=== PATIENT | female | born 1955 | race American Indian/Alaskan Native ===

== ENCOUNTER 2019-07-01 07:32 | Emergency (ER) | payer OTHER ==
[2019-07-01 08:00] LABS: Hematocrit 36.9 % (30.3-42.9); Hemoglobin 12.1 gm/dl (10.1-14.3); Mean Corpuscular HGB Conc 33 % (30-34); Mean Corpuscular Volume 90 fl (79-97); Platelet Count 267 K/mm3 (140-440); Red Cell Distribution Width 13.1 % (13.2-15.2)
[2019-07-01 08:12] LABS: Alanine Aminotransferase 48 units/L (7-56); Albumin 4.2 g/dL (3.9-5); BUN/Creatinine Ratio 25; Blood Urea Nitrogen 15 mg/dL (7-17); Calcium 8.9 mg/dL (8.4-10.2); Hemolysis Index 0
[2019-07-01 08:26] LABS: Basophils # (Auto) 0.1 K/mm3 (0.0-0.1); Basophils % (Auto) 1.2 % (0.0-1.8); Eosinophils # (Auto) 0.2 K/mm3 (0.0-0.4); Eosinophils % (Auto) 2.8 % (0.0-4.3); Monocytes # (Auto) 1.1 K/mm3 (0.0-0.8)
[2019-07-01 08:50] VITALS: BP 169/84
[2019-07-01 09:08] LABS: Total Cells Counted 100
[2019-07-01 09:09] LABS: Platelet Estimate Consistent w Auto; RBC Morphology Normal
--- NOTE | 2019-07-01 09:45 | Emergency Department Report ---
ED Female HPI - General Chief complaint: Vaginal Bleeding Stated complaint: HEAVY BLEEDING Time Seen by Provider: 07/01/19 09:22 Source: patient Mode of arrival: Ambulatory Limitations: No Limitations - History of Present Illness Initial comments: 63-year-old female presents to ED with vaginal bleeding 2 days. Patient is postmenopausal, last menstrual period was at age of 48. Patient reports lower abdominal cramping. MD Complaint: vaginal bleeding -: days(s) (2) Severity: moderate Quality: cramping Consistency: constant Improves with: none Worsens with: none Are you Now?: No Associated Symptoms: denies other symptoms - Related Data Home Medications Medication Instructions Recorded Confirmed Last Taken Atenolol/Chlorthalidone [Tenoretic 1 each PO DAILY 08/24/14 08/24/14 08/23/14 50-25 mg] Previous Rx's Medication Instructions Recorded Last Taken Type traMADol [Ultram 50 MG tab] 50 mg PO Q6HR PRN #14 tablet 08/24/14 Unknown Rx HYDROcodone/APAP 5-325 [[place] 1 each PO Q6HR PRN #20 tablet 01/14/15 Unknown Rx 5/325] Allergies Allergy/AdvReac Type Severity Reaction Status Date / Time No Known Allergies Allergy Unverified 09/11/13 09:49 ED Review of Systems ROS: Stated complaint: HEAVY BLEEDING Other details as noted in HPI Comment: All other systems reviewed and negative Gastrointestinal: abdominal pain Genitourinary: abnormal menses ED Past Medical Hx - Past Medical History Previous Medical History?: Yes Hx Hypertension: Yes Hx Liver Disease: Yes (hep C) Additional medical history: chronic pain - Surgical History Past Surgical History?: Yes Additional Surgical History: TUBAL LIGATION. hemorrhoidectomy. nasal reconstruction - Social History Smoking Status: Current Every Day Smoker Substance Use Type: None - Medications Home Medications: Home Medications Medication Instructions Recorded Confirmed Last Taken Type Atenolol/Chlorthalidone [Tenoretic 1 each PO DAILY 08/24/14 08/24/14 08/23/14 History 50-25 mg] traMADol [Ultram 50 MG tab] 50 mg PO Q6HR PRN #14 tablet 08/24/14 Unknown Rx HYDROcodone/APAP 5-325 [[place] 1 each PO Q6HR PRN #20 tablet 01/14/15 Unknown Rx 5/325] ED Physical Exam - General Limitations: No Limitations General appearance: alert, in no apparent distress - Head Head exam: Present: atraumatic, normocephalic - Eye Eye exam: Present: normal appearance, EOMI - ENT ENT exam: Present: mucous membranes moist - Neck Neck exam: Present: normal inspection - Respiratory Respiratory exam: Present: normal lung sounds bilaterally. Absent: respiratory distress - Cardiovascular Cardiovascular Exam: Present: regular rate, normal rhythm - GI/Abdominal GI/Abdominal exam: Present: soft, tenderness (mild suprapubic tenderness). Absent: distended - Extremities Exam Extremities exam: Present: normal inspection - Neurological Exam Neurological exam: Present: alert, oriented X3 - Psychiatric Psychiatric exam: Present: normal affect, normal mood - Skin Skin exam: Present: warm, dry, intact, normal color ED Course Vital Signs 07/01/19 07/01/19 07:37 08:49 Temperature 98.2 F 98.0 F Pulse Rate 78 60 Respiratory 19 12 Rate Blood Pressure 172/78 Blood Pressure 169/84 [Right] O2 Sat by Pulse 95 100 Oximetry ED Medical Decision Making - Lab Data Result diagrams: 07/01/19 07:48 07/01/19 07:48 - Radiology Data Radiology results: report reviewed, image reviewed - Medical Decision Making 63-year-old female postmenopausal bleeding. Vitals are unremarkable other than mildly elevated blood pressure, however patient is not hypotensive or tachycardic. Hemoglobin is normal at 12.1. Ultrasound shows thickened endometrium. Patient advised to follow-up urgently with [facility] due to concern for possible malignancy with postmenopausal bleeding. Return precautions given. Will discharge at this time. - Differential Diagnosis anemia, malignancy, DUB Critical care attestation.: If time is entered above; I have spent that time in minutes in the direct care of this critically ill patient, excluding procedure time. ED Disposition Clinical Impression: Post-menopausal bleeding Disposition: DC-01 TO HOME OR SELFCARE Is pt being admited?: No Condition: Stable Instructions: Dysfunctional Uterine Bleeding (ED) Referrals: TAWNY ARMSTRONG MD [Primary Care Provider] - 3-5 Days SOCO KAISER MD [Staff Physician] - 3-5 Days [facility] [Provider Group] - 3-5 Days [facility] [Provider Group] - 3-5 Days Time of Disposition: 12:28
[2019-07-01 10:52] LABS: Bilirubin,Urine NEG (Negative); Blood,Urine LG (Negative); Color,Urine Yellow (Yellow); Protein,Urine <15 mg/dL mg/dL (Negative); Urobilinogen,Urine < 2.0 mg/dL (<2.0)
[2019-07-01 10:56] LABS: RBC,Urine > 182.0 /HPF (0.0-6.0)
--- NOTE | 2019-07-01 12:19 | Ultrasound Report ---
ULTRASOUND PELVIS INDICATION: Vaginal bleeding. Left lower quadrant and pelvic pain. TECHNIQUE: Transabdominal and Transvaginal. Duplex Color Doppler used: Yes. COMPARISON: None available FINDINGS: Uterus: Present. Size: 6.9 x 4.2 x 7.0 cm. Endometrial complex: Thickened measuring 0.8 cm. Fluid is noted along the endometrial canal without a distinct solid lesion. Mass lesions: None. Additional findings: None. Right Ovary: Size: 2.2 x 1.3 x 1.5 cm Blood flow: Normal. Cyst or mass: None. Left Ovary: Size: 2.2 x 1.2 x 1.3 cm Blood flow: Normal. Cyst or mass: None. Urinary Bladder: Normal. Free Fluid: None. Additional Findings: None. IMPRESSION: Endometrial thickening in the setting of vaginal bleeding in a postmenopausal patient is concerning f or malignancy until proven otherwise. 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 Signer Name: Justin Lord MD Signed: 07/01/2019 12:15 PM Workstation Name: [id number]
--- NOTE | 2019-07-01 12:19 | Ultrasound Report ---
ULTRASOUND PELVIS INDICATION: Vaginal bleeding. Left lower quadrant and pelvic pain. TECHNIQUE: Transabdominal and Transvaginal. Duplex Color Doppler used: Yes. COMPARISON: None available FINDINGS: Uterus: Present. Size: 6.9 x 4.2 x 7.0 cm. Endometrial complex: Thickened measuring 0.8 cm. Fluid is noted along the endometrial canal without a distinct solid lesion. Mass lesions: None. Additional findings: None. Right Ovary: Size: 2.2 x 1.3 x 1.5 cm Blood flow: Normal. Cyst or mass: None. Left Ovary: Size: 2.2 x 1.2 x 1.3 cm Blood flow: Normal. Cyst or mass: None. Urinary Bladder: Normal. Free Fluid: None. Additional Findings: None. IMPRESSION: Endometrial thickening in the setting of vaginal bleeding in a postmenopausal patient is concerning f or malignancy until proven otherwise. MILLER ROD MILL consultation is recommended. Signer Name: Justin Lord MD Signed: 07/01/2019 12:15 PM Workstation Name: [id number]
== END 2019-07-01 12:44 | disposition home or self-care (01) ==
LOC: ED 07:32
DX: N95.0 Postmenopausal bleeding (principal); I10 Essential (primary) hypertension; G89.29 Other chronic pain; F17.200 Nicotine dependence, unspecified, uncomplicated; Z98.51 Tubal ligation status; Z98.890 Other specified postprocedural states; Z86.19 Personal history of other infectious and parasitic diseases
CPT/HCPCS: 36415; 76830; 80053; 81001; 85007; 85025; 87086; 93975; 99284

== ENCOUNTER 2019-09-12 11:07 | Emergency (ER) | payer OTHER ==
[2019-09-12 11:42] LABS: Bacteria,Urine 1+ /HPF (Negative); Bilirubin,Urine NEG (Negative); Blood,Urine NEG (Negative); Color,Urine Yellow (Yellow); Mucus,Urine FEW /HPF; Protein,Urine <15 mg/dL mg/dL (Negative); Urobilinogen,Urine < 2.0 mg/dL (<2.0)
[2019-09-12] MEDS ORDERED: MORPHINE 4 MG/1 ML INJ IV ONE (12:01)
[2019-09-12] MEDS ORDERED: ONDANSETRON 4 MG/2 ML INJ IV ONE (12:01)
[2019-09-12] MEDS ORDERED: SODIUM CHLORIDE 0.9% 500 ML 500 ML IV ONE (12:01)
[2019-09-12 12:29] LABS: Hemoglobin 11.9 gm/dl (10.1-14.3); Mean Corpuscular HGB Conc 33 % (30-34); Mean Corpuscular Volume 88 fl (79-97); Platelet Count 278 K/mm3 (140-440); Red Blood Count 4.11 M/mm3 (3.65-5.03); Red Cell Distribution Width 14.8 % (13.2-15.2)
[2019-09-12 12:50] LABS: Alanine Aminotransferase 32 units/L (7-56); BUN/Creatinine Ratio 16; Blood Urea Nitrogen 8 mg/dL (7-17); Calcium 9.2 mg/dL (8.4-10.2); Hemolysis Index 3
--- NOTE | 2019-09-12 13:10 | Emergency Department Report ---
ED General Adult HPI - General Chief complaint: Weakness Stated complaint: LOWER BACK PAIN Time Seen by Provider: 09/12/19 11:30 Source: patient, RN notes reviewed, old records reviewed Mode of arrival: Ambulatory Limitations: No Limitations - History of Present Illness Initial comments: The patient is a 63-year-old female. 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 Saloni Hennessy [phone] Radiation oncology: Dr. Leonidas Siu The patient presents to the ER today with a complaint of nontraumatic suprapubic pain. The pain has been present since her surgery. She reports that she followed up with her gynecology oncologist after her surgery. Over the past 3 days, she's had worsening suprapubic pain that radiates to the right flank and right back. There is nausea vomiting times one. She has not vomited for 3 days. There is positive dysuria. She is not having diarrhea. There is no fever. There is no chest pain. There is no shortness of breath. There is no bright red blood per rectum. There is no focal extremity weakness and or numbness. -: Gradual Location: abdomen Radiation: back, flank Severity scale (0 -10): 7 Quality: aching Consistency: intermittent Improves with: none Worsens with: none - Related Data Home Medications Medication Instructions Recorded Confirmed Last Taken Atenolol/Chlorthalidone [Tenoretic 1 each PO DAILY 08/24/14 08/24/14 08/23/14 50-25 mg] Previous Rx's Medication Instructions Recorded Last Taken Type traMADoL [Ultram 50 MG tab] 50 mg PO Q6HR PRN #14 tablet 08/24/14 Unknown Rx HYDROcodone/APAP 5-325 [[place] 1 each PO Q6HR PRN #20 tablet 01/14/15 Unknown Rx 5/325] Acetaminophen [Non-Aspirin Extra 500 mg PO Q6HR PRN #30 tablet 09/12/19 Unknown Rx Strength] Vicenta Root [Vicenta] 250 mg PO QID PRN #30 capsule 09/12/19 Unknown Rx Ibuprofen [Motrin] 600 mg PO Q8H PRN #30 tablet 09/12/19 Unknown Rx Metoclopramide [Reglan] 10 mg PO QID PRN #30 tablet 09/12/19 Unknown Rx levoFLOXacin [Levaquin] 750 mg PO QDAY #6 tablet 09/12/19 Unknown Rx Allergies Allergy/AdvReac Type Severity Reaction Status Date / Time No Known Allergies Allergy Unverified 09/11/13 09:49 ED Review of Systems ROS: Stated complaint: LOWER BACK PAIN Other details as noted in HPI Constitutional: malaise. denies: fever Eyes: denies: eye discharge ENT: denies: congestion Cardiovascular: denies: syncope Gastrointestinal: abdominal pain, nausea, vomiting Genitourinary: dysuria Musculoskeletal: back pain Neurological: weakness Hematological/Lymphatic: denies: easy bleeding ED Past Medical Hx - Past Medical History Hx Hypertension: Yes Hx Liver Disease: Yes (hep C) Additional medical history: chronic pain - Surgical History Past Surgical History?: Yes Additional Surgical History: TUBAL LIGATION. hemorrhoidectomy. nasal reconstruction. hysterectomy 08/2019 - Social History Smoking Status: Never Smoker Substance Use Type: None - Medications Home Medications: Home Medications Medication Instructions Recorded Confirmed Last Taken Type Atenolol/Chlorthalidone [Tenoretic 1 each PO DAILY 08/24/14 08/24/14 08/23/14 History 50-25 mg] traMADoL [Ultram 50 MG tab] 50 mg PO Q6HR PRN #14 tablet 08/24/14 Unknown Rx HYDROcodone/APAP 5-325 [[place] 1 each PO Q6HR PRN #20 tablet 01/14/15 Unknown Rx 5/325] Acetaminophen [Non-Aspirin Extra 500 mg PO Q6HR PRN #30 tablet 09/12/19 Unknown Rx Strength] Vicenta Root [Vicenta] 250 mg PO QID PRN #30 capsule 09/12/19 Unknown Rx Ibuprofen [Motrin] 600 mg PO Q8H PRN #30 tablet 09/12/19 Unknown Rx Metoclopramide [Reglan] 10 mg PO QID PRN #30 tablet 09/12/19 Unknown Rx levoFLOXacin [Levaquin] 750 mg PO QDAY #6 tablet 09/12/19 Unknown Rx ED Physical Exam - General Limitations: No Limitations General appearance: alert, anxious - Head Head exam: Present: atraumatic, normocephalic - Eye Eye exam: Present: normal appearance, EOMI. Absent: nystagmus - ENT ENT exam: Present: normal exam, normal orophraynx, mucous membranes moist, normal external ear exam - Neck Neck exam: Present: normal inspection, full ROM. Absent: tenderness, meningismus - Respiratory Respiratory exam: Present: normal lung sounds bilaterally. Absent: respiratory distress - Cardiovascular Cardiovascular Exam: Present: regular rate, normal rhythm, normal heart sounds. Absent: bradycardia, tachycardia, irregular rhythm, systolic murmur, diastolic murmur, rubs, gallop - GI/Abdominal GI/Abdominal exam: Present: soft, distended, other (surgical sites have no redness, pus or streaking.). Absent: tenderness, guarding, rebound, rigid, pulsatile mass - Extremities Exam Extremities exam: Present: normal inspection, full ROM, other (2+ pulses noted in the bilateral upper and lower extremities. There is no palpable cord. negative Homans sign. Muscular compartments are soft. The pelvis is stable.). Absent: pedal edema, joint swelling, calf tenderness - Back Exam Back exam: Present: normal inspection, full ROM. Absent: tenderness, CVA tenderness (R), CVA tenderness (L), paraspinal tenderness, vertebral tenderness - Neurological Exam Neurological exam: Present: alert, normal gait, other (there is no facial droop. The tongue is midline. The extraocular movements are intact bilaterally. Speaking in full sentences. There is 5/5 strength bilateral upper and lower extremities.). Absent: motor sensory deficit - Psychiatric Psychiatric exam: Present: anxious - Skin Skin exam: Present: warm, dry, intact, normal color. Absent: rash ED Course Vital Signs 09/12/19 09/12/19 09/12/19 11:12 11:38 11:41 Temperature 97.8 F 97.9 F Pulse Rate 103 H 99 H Respiratory 18 Rate Blood Pressure 191/100 O2 Sat by Pulse 99 Oximetry 09/12/19 09/12/19 09/12/19 11:58 12:00 12:16 Temperature Pulse Rate 88 77 99 H Respiratory 13 11 L 10 L Rate Blood Pressure 171/92 167/90 O2 Sat by Pulse 100 99 100 Oximetry 09/12/19 09/12/19 12:30 12:46 Temperature Pulse Rate 74 71 Respiratory 12 9 L Rate Blood Pressure 145/77 145/77 O2 Sat by Pulse 100 100 Oximetry - Reevaluation(s) Reevaluation #1: 09/12/19 13:07 Differential diagnosis, including but not limited to: Urinary tract infection, pyelonephritis, postoperative abscess/seroma/collection, cancer pain Assessment and plan: 63-year-old female with 4-5 weeks of lower abdominal pain, worsening over the past couple days. She is afebrile with reassuring vital signs. She is not tender. Tachycardia has resolved and she does not have leukocytosis. Urinalysis is reviewed and appreciated. Given her recent surgical intervention, reported history of active cancer, we will treat her symptoms, obtain CT scan abdomen pelvis to exclude surgical condition. As a courtesy, attempted to contact her cullet crusher oncologist, Dr. Bossman Hennessy, but he was in the operating room and not available to discuss over the phone. However, his office staff informed me that the patient is having her post surgical care coordinated by Dr. Hennessy, and that the patient will be working wit h the aforementioned radiation oncologist. We will reassess after the patient's data points have resulted. Reevaluation #2: 09/12/19 14:14 [facility] aware 09/07/2019 2 09/04/2019 HYDROCODONE-ACETAMIN 7.5-325 20.0 3 CY SPA [id number] PUBLI (5492) 0 50.0 [place] Comm [place] 08/21/2019 2 08/21/2019 HYDROCODONE-ACETAMIN 5-325 MG 20.0 5 CY SPA [id number] PUBLI (5492) 0 20.0 [place] 08/10/2019 2 08/10/2019 HYDROCODONE-ACETAMIN 5-325 MG 20.0 5 CY SPA [id number] PUBLI (5492) 0 20.0 MME Comm Ins 07/31/2019 2 07/30/2019 OXYCODONE HCL 5 MG TABLET 20.0 5 CY SPA [id number] PUBLI (5492) 0 30.0 [place] 06/30/2019 2 06/29/2019 HYDROCODONE-ACETAMIN 5-325 MG 60.0 30 EF OGI [id number] PUBLI (5492) 0 10.0 [place] 01/08/2019 2 01/08/2019 HYDROCODONE-ACETAMIN 7.5-325 60.0 30 HY [place] [id number] PUBLI (5492) 0 15.0 [place] 12/07/2018 1 12/02/2018 HYDROCODONE-ACETAMIN 7.5-325 60.0 30 HY [place] [id number] PUBLI (5492) 0 15.0 [place] 11/08/2018 1 11/08/2018 HYDROCODONE-ACETAMIN 7.5-325 60.0 30 HY [place] [id number] PUBLI (5492) 0 15.0 [place] 10/11/2018 2 10/11/2018 HYDROCODONE-ACETAMIN 7.5-325 60.0 30 RANDALL [id number] PUBLI (5492) 0 15.0 [place] 09/12/2018 2 09/11/2018 HYDROCODONE-ACETAMIN 7.5-325 60.0 30 HY [place] [id number] PUBLI (5492) 0 15.0 [place] Reevaluation #3: 09/12/19 14:15 Patient reassessed. Patient feels improved. Patient will be started empirically on antibiotics, nonnarcotic pain medication and nausea medication. Prescription monitoring database is reviewed and appreciated. She will need to follow up with primary care and/or gynecology oncology. Return percussions reviewed. ED Medical Decision Making - Lab Data Result diagrams: 09/12/19 12:14 09/12/19 12:14 Vital Signs 09/12/19 09/12/19 09/12/19 11:12 11:38 11:41 Temperature 97.8 F 97.9 F Pulse Rate 103 H 99 H Respiratory 18 Rate Blood Pressure 191/100 O2 Sat by Pulse 99 Oximetry 09/12/19 09/12/19 09/12/19 11:58 12:00 12:16 Temperature Pulse Rate 88 77 99 H Respiratory 13 11 L 10 L Rate Blood Pressure 171/92 167/90 O2 Sat by Pulse 100 99 100 Oximetry 09/12/19 09/12/19 12:30 12:46 Temperature Pulse Rate 74 71 Respiratory 12 9 L Rate Blood Pressure 145/77 145/77 O2 Sat by Pulse 100 100 Oximetry Lab Results 09/12/19 09/12/19 09/12/19 Range/Units 12:14 12:14 Unknown WBC 6.0 (4.5-11.0) K/mm3 RBC 4.11 (3.65-5.03) M/mm3 Hgb 11.9 (10.1-14.3) gm/dl Hct 36.0 (30.3-42.9) % MCV 88 (79-97) fl MCH 29 (28-32) pg MCHC 33 (30-34) % RDW 14.8 (13.2-15.2) % Plt Count 278 (140-440) K/mm3 Sodium 138 (137-145) mmol/L Potassium 3.8 (3.6-5.0) mmol/L Chloride 105.1 (98-107) mmol/L Carbon Dioxide 22 (22-30) mmol/L Anion Gap 15 mmol/L BUN 8 (7-17) mg/dL Creatinine 0.5 L (0.7-1.2) mg/dL Estimated GFR > 60 ml/min BUN/Creatinine Ratio 16 % Glucose 96 (65-100) mg/dL Calcium 9.2 (8.4-10.2) mg/dL Magnesium 1.90 (1.7-2.3) mg/dL Total Bilirubin 0.30 (0.1-1.2) mg/dL AST 36 (5-40) units/L ALT 32 (7-56) units/L Alkaline Phosphatase 56 (35-129) units/L Total Creatine Kinase 65 (30-135) units/L Total Protein 7.7 (6.3-8.2) g/dL Albumin 4.0 (3.9-5) g/dL Albumin/Globulin Ratio 1.1 % Urine Color Yellow (Yellow) Urine Turbidity Clear (Clear) Urine pH 6.0 (5.0-7.0) Ur Specific [place] 1.016 (1.003-1.030) Urine Protein <15 mg/dl (Negative) mg/dL Urine Glucose (UA) Neg (Negative) mg/dL Urine Ketones Neg (Negative) mg/dL Urine Blood Neg (Negative) Urine Nitrite Neg (Negative) Urine Bilirubin Neg (Negative) Urine Urobilinogen < 2.0 (<2.0) mg/dL Ur Leukocyte Esterase Lg (Negative) Urine WBC (Auto) 62.0 H (0.0-6.0) /HPF Urine RBC (Auto) 9.0 (0.0-6.0) /HPF U Epithel Cells (Auto) 4.0 (0-13.0) /HPF Urine Bacteria (Auto) 1+ (Negative) /HPF Urine Mucus Few /HPF - EKG Data -: EKG Interpreted by [facility] EKG shows normal: sinus rhythm Rate: normal - EKG Data 09/12/19 13:11 The EKG today shows a sinus rhythm, 78 bpm, QTC is 456 ms, there is poor R wave progression, there is no endorsement of chest pain, the EKG is abnormal, it is not consistent with ST elevation myocardial infarction. - Radiology Data Radiology results: pending, report reviewed, image reviewed nt Report Referring Physician: JANNETH NJ Patient Name: WALT KAISER Date of : 1955 Sex: Female Report Date: 2019-09-12 Report Status: Finalized Findings [facility] [address] [place] [address] Cat Scan Report Signed Patient: WALT KAISER MR#: [id number] : 1955 Acct:[id number] Age/Sex: 63 / F ADM Date: 09/12/19 Loc: ED Attending Dr: Ordering Physician: JANNETH NJ MD Date of Service: 09/12/19 Procedure(s): CT abdomen pelvis w con Accession Number(s): [id number] cc: JANNETH NJ MD CT ABDOMEN AND PELVIS WITH CONTRAST HISTORY: right sided abd pain s/p lap KARTIK COMPARISON: None. TECHNIQUE: Axial CT images were obtained through the abdomen and pelvis after 100 cc of Omnipaque 300 intravenously. Sagittal and coronal reformatted images. All CT scans at this location are performed using CT dose reduction for ALARA by means of automated exposure control. FINDINGS: CT ABDOMEN: Lung Bases: Clear. Liver: An approximate 8 cm cyst with focal wall calcifications and fine internal septation are identified in the left hepatic lobe. The remainder the liver is unremarkable. Biliary: No significant abnormality. Spleen: No significant abnormality. Unenlarged. Pancreas: No significant abnormality. Adrenals: No significant abnormality. Kidneys: No significant abnormality. Lymphatics: No lymphadenopathy. Vasculature: No significant abnormality. Bowel/Peritoneum: No significant abnormality. No free air. No free fluid. Normal appendix. CT PELVIS: : Recent hysterectomy changes are suspected. No evidence for adnexal abnormality or pelvic fluid collection. The bladder is unremarkable. Osseous Structures: No significant abnormality. Additional Findings: None IMPRESSION: No acute process is identified. Hysterectomy changes. Complex liver cyst. Signer Name: Jonathan Barton Jr, MD Signed: 09/12/2019 1:59 PM Workstation Name: [id number] Transcribed By: TTR Dictated By: JONATHAN BARTON JR, MD Electronically Authenticated By: JONATHAN BARTON JR, MD Signed Date/Time: 09/12/19 0354 Critical care attestation.: If time is entered above; I have spent that time in minutes in the direct care of this critically ill patient, excluding procedure time. ED Disposition Clinical Impression: Right sided abdominal pain UTI (urinary tract infection) Qualifiers: Urinary tract infection type: site unspecified Hematuria presence: without hematuria Qualified Code(s): N39.0 - Urinary tract infection, site not specified Disposition: DC- TO HOME OR SELFCARE Is pt being admited?: No Does the pt Need Aspirin: No Condition: Stable Additional Instructions: Do not take metformin medication for the next 2 days, if patient takes this medi cation. Patient may take the Tylenol and prescribed ibuprofen as needed for pain. Patient may take the nausea medication as needed and directed. Take the antibiotics as directed. Do not consume alcohol while taking the prescription medications. Recommend patient follow-up with her primary care doctor, or gynecology oncologist within the next 7 days for repeat checkup and evaluation. Cultures were sent today, and results will be available in the next 3-5 days. Please have your primary care doctor or gynecology oncologist contact the medical records department to obtain culture results. Return to the emergency room right away with new, worsening, different symptoms, or symptoms not present on the initial emergency room evaluation. CT scan of the abdomen pelvis demonstrated nonemergent incidental findings today, including liver cyst. Please have your primary care doctor contact the medical records department to obtain CT scan to arrange follow-up on nonemergent incidental findings. DR Bossman Hennessy [place] [facility] [address] [place], [place] [id number] Referrals: JUAN R ARMSTRONG MD [Staff Physician] - 7-10 days
--- NOTE | 2019-09-12 14:04 | Cat Scan Report ---
CT ABDOMEN AND PELVIS WITH CONTRAST HISTORY: right sided abd pain s/p lap KARTIK COMPARISON: None. TECHNIQUE: Axial CT images were obtained through the abdomen and pelvis after 100 cc of Omnipaque 300 intravenously. Sagittal and coronal reformatted images. All CT scans at this location are performed using CT dose reduction for ALARA by means of automated exposure control. FINDINGS: CT ABDOMEN: Lung Bases: Clear. Liver: An approximate 8 cm cyst with focal wall calcifications and fine internal septation are identi fied in the left hepatic lobe. The remainder the liver is unremarkable. Biliary: No significant abnormality. Spleen: No significant abnormality. Unenlarged. Pancreas: No significant abnormality. Adrenals: No significant abnormality. Kidneys: No significant abnormality. Lymphatics: No lymphadenopathy. Vasculature: No significant abnormality. Bowel/Peritoneum: No significant abnormality. No free air. No free fluid. Normal appendix. CT PELVIS: : Recent hysterectomy changes are suspected. No evidence for adnexal abnormality or pelvic fluid co llection. The bladder is unremarkable. Osseous Structures: No significant abnormality. Additional Findings: None IMPRESSION: No acute process is identified. Hysterectomy changes. Complex liver cyst. Signer Name: Jonathan Barton Jr, MD Signed: 09/12/2019 1:59 PM Workstation Name: [id number]
[2019-09-12] MEDS ORDERED: cefTRIAXone/NS 1 GM/50 ML 1 GM/50 ML BAG IV ONE (14:15)
[2019-09-12 15:06] VITALS: BP 144/73
== END 2019-09-12 15:12 | disposition home or self-care (01) ==
LOC: ED 11:07
DX: N39.0 Urinary tract infection, site not specified (principal); R11.2 Nausea with vomiting, unspecified; I10 Essential (primary) hypertension; Z98.51 Tubal ligation status; Z90.710 Acquired absence of both cervix and uterus; Z79.899 Other long term (current) drug therapy
CPT/HCPCS: 36415; 74177; 80053; 81001; 82550; 83735; 85027; 87086; 93005; 93010; 96361; 96365; 96375; 99284; J0696; J2270; J2405; J7040; Q9967

== ENCOUNTER 2019-11-02 08:32 | Emergency (ER) | payer OTHER ==
[2019-11-02 10:02] LABS: Bacteria,Urine 1+ /HPF (Negative); Bilirubin,Urine NEG (Negative); Blood,Urine NEG (Negative); Color,Urine Straw (Yellow); Protein,Urine <15 mg/dL mg/dL (Negative); Urobilinogen,Urine < 2.0 mg/dL (<2.0)
[2019-11-02] MEDS ORDERED: ONDANSETRON 4 MG/2 ML INJ IV ONE (10:10)
[2019-11-02] MEDS ORDERED: MORPHINE 4 MG/1 ML INJ IV ONE (10:10)
[2019-11-02 10:13] LABS: Basophils % (Auto) 0.8 % (0.0-1.8); Eosinophils # (Auto) 0.1 K/mm3 (0.0-0.4); Eosinophils % (Auto) 3.6 % (0.0-4.3); Hematocrit 39.9 % (30.3-42.9); Hemoglobin 13.1 gm/dl (10.1-14.3); Lymphocytes # (Auto) 0.5 K/mm3 (1.2-5.4); Lymphocytes % (Auto) 13.7 % (13.4-35.0); Mean Corpuscular HGB Conc 33 % (30-34); Mean Corpuscular Volume 87 fl (79-97); Monocytes # (Auto) 0.6 K/mm3 (0.0-0.8); Monocytes % (Auto) 14.8 % (0.0-7.3); Platelet Count 237 K/mm3 (140-440); Red Blood Count 4.59 M/mm3 (3.65-5.03); Red Cell Distribution Width 14.5 % (13.2-15.2)
--- NOTE | 2019-11-02 10:35 | Emergency Department Report ---
HPI - General Chief Complaint: Weakness Time Seen by Provider: 11/02/19 09:50 - HPI HPI: 63-year-old female presents to the emergency department via EMS from home with complaint of lower abdominal and pelvic pain, as well as some generalized pain, increased urinary frequency and some diarrhea. The patient has a history of uterine cancer and has been undergoing radiation treatments. She says that she got her last "external radiation" therapy on Tuesday, 2 days ago. She was due to go to have "internal radiation" done. However the patient began having these symptoms at 3 AM this morning. She tried one of her daughters Tylenol 3 yesterday for her pain with only some mild transient relief. Patient says that she has been dealing with a few different urinary tract infections over the past few months. She had a total hysterectomy done in August of last year. She also has a history of hypertension, hepatitis C, osteoarthritis. The patient's radiation oncologist is Dr. Vero Siu. ED Past Medical Hx - Past Medical History Hx Hypertension: Yes Hx Liver Disease: Yes (hep C) Hx of Cancer: Yes Additional medical history: chronic pain - Surgical History Additional Surgical History: TUBAL LIGATION. hemorrhoidectomy. nasal reconstruction. hysterectomy 08/2019 - Social History Smoking Status: Light Tobacco Smoker Substance Use Type: None - Medications Home Medications: Home Medications Medication Instructions Recorded Confirmed Last Taken Type Atenolol/Chlorthalidone [Tenoretic 1 each PO DAILY 08/24/14 08/24/14 08/23/14 History 50-25 mg] traMADoL [Ultram 50 MG tab] 50 mg PO Q6HR PRN #14 tablet 08/24/14 Unknown Rx HYDROcodone/APAP 5-325 [[place] 1 each PO Q6HR PRN #20 tablet 01/14/15 Unknown Rx 5/325] Acetaminophen [Non-Aspirin Extra 500 mg PO Q6HR PRN #30 tablet 09/12/19 Unknown Rx Strength] Vicenta Root [Vicenta] 250 mg PO QID PRN #30 capsule 09/12/19 Unknown Rx Ibuprofen [Motrin] 600 mg PO Q8H PRN #30 tablet 09/12/19 Unknown Rx Metoclopramide [Reglan] 10 mg PO QID PRN #30 tablet 09/12/19 Unknown Rx levoFLOXacin [Levaquin] 750 mg PO QDAY #6 tablet 09/12/19 Unknown Rx Ondansetron [Zofran Odt] 4 mg PO Q8HR PRN #15 tab.rapdis 11/02/19 Unknown Rx traMADoL [Ultram 50 MG tab] 50 mg PO Q6HR PRN #12 tablet 11/02/19 Unknown Rx ED Review of Systems ROS: Stated complaint: WEAKNESS Other details as noted in HPI Comment: All other systems reviewed and negative Constitutional: denies: chills, fever Eyes: denies: eye pain, vision change ENT: denies: ear pain, throat pain Respiratory: denies: cough, shortness of breath Cardiovascular: denies: chest pain, palpitations Gastrointestinal: abdominal pain, diarrhea Genitourinary: frequency. denies: dysuria, discharge Musculoskeletal: denies: joint swelling, arthralgia Skin: denies: rash, lesions Neurological: denies: headache, weakness Physical Exam - Physical Exam Vital Signs: Vital Signs 11/02/19 11/02/19 08:42 10:00 Temperature 98.6 F Pulse Rate 79 72 Respiratory 20 18 Rate Blood Pressure 177/85 Blood Pressure 176/98 [Left] O2 Sat by Pulse 98 99 Oximetry Physical Exam: GENERAL: The patient is well-developed well-nourished. HEENT: Normocephalic. Atraumatic. Patient has moist mucous membranes. EYES: Extraocular motions are intact. NECK: Supple. Trachea is midline. CHEST/LUNGS: Clear to auscultation. There is no respiratory distress noted. HEART/CARDIOVASCULAR: Regular. There is no tachycardia. There is no murmur. ABDOMEN: Abdomen is soft. Unable to reproduce abdominal pain to palpation. No guarding. Patient has normal bowel sounds. There is no abdominal distention. SKIN:Skin is warm and dry. . NEURO: The patient is awake, alert, and oriented. The patient is cooperative. The patient has no focal neurologic deficits. Normal speech. MUSCULOSKELETAL: There is no tenderness or deformity. There is no evidence of acute injury. ED Course Vital Signs 11/02/19 11/02/19 08:42 10:00 Temperature 98.6 F Pulse Rate 79 72 Respiratory 20 18 Rate Blood Pressure 177/85 Blood Pressure 176/98 [Left] O2 Sat by Pulse 98 99 Oximetry ED Medical Decision Making - Lab Data Result diagrams: 11/02/19 09:20 11/02/19 09:20 - Radiology Data Radiology results: image reviewed interpreted by me: Abdominal x-ray shows nonspecific nonobstructive bowel gas - Medical Decision Making This patient presents to the emergency department with some lower abdominal and pelvic pain ever since had internal radiation done for her uterine cancer history. Her labs have been unremarkable CBC, metabolic panel and urinalysis. X-ray shows nonspecific nonobstructive bowel gas. The patient was reevaluated multiple times several hours and is feeling some improvement. She came in with a pain of about 10 out of 10 and it is down to a 4 out of 10 prior to discharge. Recommended to the patient to have a CT scan of the abdomen and pelvis done to look for other possible sources of her discomfort besides the internal radiation. However the patient refuses this as she does not want any further radiation exposure and believes that her discomfort is secondary to the internal radiation procedure. Since the patient is feeling improved and has good outpatient follow-up with primary care and radiation oncology, she will be discharged home with pain medication and antibiotics. However she will return to the emergency department immediately with any worsening of her symptoms or any acute distress. - Differential Diagnosis malignancy, UTI, diverticulitis, perforation Critical Care Time: No Critical care attestation.: If time is entered above; I have spent that time in minutes in the direct care of this critically ill patient, excluding procedure time. ED Disposition Clinical Impression: Pain after radiation therapy, Pelvic pain, Elevated liver enzymes Abdominal pain Qualifiers: Abdominal location: unspecified location Qualified Code(s): R10.9 - Unspecified abdominal pain Back pain Qualifiers: Back pain location: back pain in unspecified location Back pain laterality: unspecified Disposition: DC-01 TO HOME OR SELFCARE Is pt being admited?: No Condition: Stable Instructions: Abdominal Pain (ED), Back Pain (ED) Additional Instructions: Please follow up with your primary care physician and your radiation oncologist. Return to the emergency Department with any worsening of your symptoms or any acute distress. You have been prescribed a medication that can be sedating. Therefore, this medication cannot be taken prior to driving, working, being responsible for children, and cannot be mixed with alcohol of any quantity. Prescriptions: traMADoL [Ultram 50 MG tab] 50 mg PO Q6HR PRN #12 tablet PRN Reason: Pain Ondansetron [Zofran Odt] 4 mg PO Q8HR PRN #15 tab.rapdis PRN Reason: Nausea Referrals: PRIMARY CARE, [Referring] - 2-3 Days Radiation Oncologist, Your [Other] - 2-3 Days Time of Disposition: 14:16
[2019-11-02 10:42] LABS: Alanine Aminotransferase 77 units/L (7-56); Albumin 3.9 g/dL (3.9-5); BUN/Creatinine Ratio 18; Blood Urea Nitrogen 9 mg/dL (7-17); Calcium 9.4 mg/dL (8.4-10.2); Hemolysis Index 15
--- NOTE | 2019-11-02 11:11 | XRay Report ---
ABDOMEN 2 VIEW(S) / XR abdomen 2V INDICATION / CLINICAL INFORMATION: abd pain. COMPARISON: 09/12/2019 CT findings. FINDINGS: Supine and upright abdominal radiographs demonstrate nonobstructive bowel gas pattern with out focal suspicious calcifications, pneumatosis or pneumoperitoneum. Few small pelvic phleboliths. Clear imaged lung bases. Unremarkable bones. IMPRESSION / CONCLUSION: Normal abdominal radiographs, as described. Thank you for the opportunity to participate in this patient's care. Signer Name: Janeth Ayers Signed: 11/02/2019 11:07 AM Workstation Name: [id number]
[2019-11-02] MEDS ORDERED: HYDROmorphone 1 MG/1 ML INJ IV ONE ×2 (11:18→13:16)
[2019-11-02] MEDS ORDERED: hydrALAZINE 20 MG/1 ML INJ IV ONE (12:07)
[2019-11-02 14:27] VITALS: BP 147/73
== END 2019-11-02 14:30 | disposition home or self-care (01) ==
LOC: ED 08:32
DX: R10.2 Pelvic and perineal pain (principal); R94.5 Abnormal results of liver function studies; R10.30 Lower abdominal pain, unspecified; M54.9 Dorsalgia, unspecified; I10 Essential (primary) hypertension; Z98.51 Tubal ligation status; Z90.710 Acquired absence of both cervix and uterus; Z98.890 Other specified postprocedural states; Z79.1 Long term (current) use of non-steroidal anti-inflammatories (NSAID); Z79.899 Other long term (current) drug therapy
CPT/HCPCS: 36415; 74019; 80053; 81001; 83690; 85025; 96374; 96375; 96376; 99284; J0360; J1170; J2270; J2405

== ENCOUNTER 2020-08-17 23:54 | Observation (INO) | payer OTHER ==
[2020-08-18 04:53] LABS: Basophils % (Auto) 0.2 % (0.0-1.8); Eosinophils # (Auto) 0.1 K/mm3 (0.0-0.4); Eosinophils % (Auto) 1.2 % (0.0-4.3); Hematocrit 36.6 % (30.3-42.9); Hemoglobin 11.9 gm/dl (10.1-14.3); Lymphocytes # (Auto) 0.9 K/mm3 (1.2-5.4); Lymphocytes % (Auto) 15.3 % (13.4-35.0); Mean Corpuscular HGB Conc 33 % (30-34); Mean Corpuscular Volume 93 fl (79-97); Monocytes # (Auto) 0.7 K/mm3 (0.0-0.8); Monocytes % (Auto) 12.5 % (0.0-7.3); Platelet Count 252 K/mm3 (140-440); Red Blood Count 3.95 M/mm3 (3.65-5.03); Red Cell Distribution Width 13.3 % (13.2-15.2)
[2020-08-18 05:14] LABS: Blood Urea Nitrogen 8 mg/dL (7-17); Calcium 9.4 mg/dL (8.4-10.2); Hemolysis Index 0
[2020-08-18 05:32] LABS: BUN/Creatinine Ratio 13
[2020-08-18] MEDS ORDERED: ONDANSETRON 4 MG/2 ML INJ IV ONE (06:33)
[2020-08-18] MEDS ORDERED: HYDROmorphone 1 MG/1 ML INJ IV ONE ×2 (06:33→08:17)
--- NOTE | 2020-08-18 06:38 | Emergency Department Report ---
HPI - General Chief Complaint: Extremity Injury, Lower Time Seen by Provider: 08/18/20 06:12 - HPI HPI: This is a 64-year-old -[place] female who presents to the emergency department via EMS from home with complaint of right lower extremity pain and swelling. The pain is currently 10 out of 10 in intensity, but has been going on for the past month and getting progressively worse. The patient says that there has been a 1 day history of swelling to the right lower extremity including the knee and thigh. She has a history of uterine carcinosarcoma apparently was in remission. However the patient says that she saw her gynecology oncologist, Dr. Hennessy ([place]), and recently had a CT scan done of what I am assuming is the pelvis and the patient says that she was told "they found something they want to biopsy." The patient has tried her oxycodone for her pain without any relief. She denies any fever, skin color change, rash, lesions. ED Past Medical Hx - Past Medical History Previous Medical History?: Yes Hx Hypertension: Yes Hx Liver Disease: Yes (hep C) Hx of Cancer: Yes (Uterine) Additional medical history: chronic pain - Surgical History Past Surgical History?: Yes Additional Surgical History: TUBAL LIGATION. hemorrhoidectomy. nasal reconstruction. hysterectomy 08/2019 - Social History Smoking Status: Never Smoker Substance Use Type: None - Medications Home Medications: Home Medications Medication Instructions Recorded Confirmed Last Taken Type HYDROcodone/APAP 5-325 [[place] 1 each PO Q6HR PRN #20 tablet 01/14/15 08/18/20 Unknown Rx 5/325] Ondansetron [Zofran Odt] 4 mg PO Q8HR PRN #15 tab.rapdis 11/02/19 08/18/20 Unknown Rx Amlodipine Besylate/Valsartan 150 mg PO DAILY 08/18/20 08/18/20 Unknown History Losartan/Hydrochlorothiazide 100 mg PO DAILY 08/18/20 08/18/20 Unknown History [Losartan-Hctz 100-25 mg Tab] Pregabalin [Lyrica] 75 mg PO DAILY 08/18/20 08/18/20 Unknown History atenoloL [Tenormin] 50 mg PO DAILY 08/18/20 08/18/20 Unknown History methOCARBAMOL [Robaxin TAB] 750 mg PO Q8H PRN 08/18/20 08/18/20 Unknown History ED Review of Systems ROS: Stated complaint: RIGHT LEG SWELLING Other details as noted in HPI Comment: All other systems reviewed and negative Constitutional: denies: chills, fever Eyes: denies: eye pain, vision change ENT: denies: ear pain, throat pain Respiratory: denies: cough, shortness of breath Cardiovascular: edema (right leg). denies: chest pain, palpitations Gastrointestinal: denies: abdominal pain, vomiting Genitourinary: denies: dysuria, discharge Musculoskeletal: joint swelling, arthralgia, myalgia. denies: back pain Skin: denies: rash, lesions Neurological: denies: numbness, paresthesias Physical Exam - Physical Exam Vital Signs: Vital Signs 08/18/20 03:24 Temperature 97.6 F Pulse Rate 72 Respiratory 17 Rate Blood Pressure 161/77 O2 Sat by Pulse 99 Oximetry Physical Exam: GENERAL: The patient is well-developed well-nourished. HENT: Normocephalic. Atraumatic. Patient has moist mucous membranes. EYES: Extraocular motions are intact. NECK: Supple. Trachea is midline. CHEST/LUNGS: Clear to auscultation. There is no respiratory distress noted. HEART/CARDIOVASCULAR: Regular. There is no tachycardia. There is no murmur. ABDOMEN: Abdomen is soft, nontender. Patient has normal bowel sounds. SKIN: Skin is warm and dry. There is 1-2+ pitting edema to the right lower extremity from the knee distally. There is some nonpitting swelling to the r ight thigh. No erythema, rash, lesions. NEURO: The patient is awake, alert, and oriented. The patient is cooperative. The patient has no focal neurologic deficits. Normal speech. MUSCULOSKELETAL: There is tenderness to palpation along the right lower extremity. There is no limitation range of motion. Capillary refill less than 2 seconds to the affected right lower extremity. ED Course Vital Signs 08/18/20 03:24 Temperature 97.6 F Pulse Rate 72 Respiratory 17 Rate Blood Pressure 161/77 O2 Sat by Pulse 99 Oximetry - Consultations Consultation #1: 08/18/20 08:[address] results with Dr. Brizuela, vascular surgery. He recommended admission to the hospitalist service, heparin drip, and they will see the patient for an evaluation. ED Medical Decision Making - Lab Data Result diagrams: 08/18/20 04:40 08/18/20 04:40 - Radiology Data Radiology results: report reviewed, image reviewed interpreted by me: X-ray of the right tib-fib and femur do not show any fracture, dislocation, or any acute process. DUPLEX DOPPLER LOWER EXTREMITY VEINS, RIGHT INDICATION / CLINICAL INFORMATION: Pain and swelling. TECHNIQUE: Duplex doppler imaging was performed through the veins of the right lower extremity using venous compression and other maneuvers. COMPARISON: None available. FINDINGS: RIGHT COMMON FEMORAL VEIN: Negative. RIGHT FEMORAL VEIN: Negative. RIGHT POPLITEAL VEIN: Negative. RIGHT CALF VEINS: Negative. ADDITIONAL FINDINGS: None. IMPRESSION: 1. No sonographic evidence for DVT in the right lower extremity. CT PELVIS WITH CONTRAST HISTORY: Right lower extremity swelling and pain. H istory of uterine cancer. COMPARISON: CT abdomen pelvis with contrast 09/12/2019 TECHNIQUE: CT images of the pelvis were obtained following administration of intravenous contrast. Sagittal and coronal reformatted images. All CT scans at this location are performed using CT dose reduction for ALARA by means of automated exposure control. CONTRAST: 100 ml of intravenous contrast administered. FINDINGS: Subtle, partially occluding thrombus is identified in the distal right common iliac artery and proximal right internal iliac artery. This is best demonstrated on helical images 54-60 series 2. The left iliac veins are patent and unremarkable. The arterial structures are widely patent with minimal calcific plaques in the common iliac arteries. Hysterectomy changes are evident. There appears to be mild right hydronephrosis which is new since the previous exam. No obvious obstructing lesion in the distal right ureter is appreciated. The bladder, distal ureters and visualized bowel loops in the abdomen are unremarkable. Normal appendix. No evidence for suspicious mass, pathologic adenopathy, fluid collection or inflammatory changes. The visualized bony structures are intact with mild degenerative changes in the lower lumbar spine. No suspicious bony lesion. IMPRESSION: Partial thrombosis of the distal right common iliac vein and proximal right internal iliac vein. Mild right hydronephrosis has developed since 09/12/2019. - Medical Decision Making This patient presents to the emergency department with complaint of a 1 month history of right leg pain and a 24-hour history of swelling of the right leg. On examination the patient does have some pitting edema to the distal right lower extremity and nonpitting swelling to the right side. No erythema, rash, lesions. Right lower extremity venous Doppler ultrasound was negative for DVT. I did a CT of the pelvis with IV contrast that came back with the results of a partial thrombosis of the right common iliac and internal iliac veins. Vascular surgery was contacted and consulted. At first Dr. Brizuela recommended IV heparin. After looking at the CT scan, Dr. Brizuela later felt that this could be consistent with a metastasis within the vessel that is causing compression on the ureter as well. Dr. Brizuela's full consult should be available for review. The patient will be admitted to the hospital for further evaluation and treatment and was accepted for admission by the hospitalist, Dr. Stiles. Critical Care Time: Yes Critical care time in (mins) excluding proc time.: 35 Critical care attestation.: If time is entered above; I have spent that time in minutes in the direct care of this critically ill patient, excluding procedure time. Critical care time was spent on this patient in doing her initial evaluation, multiple reevaluations, ordering and interpretation of labs and imaging, discussion with the vascular surgeon, multiple discussions with the patient, multiple doses of IV analgesia, IV heparin for thrombosis. Critical Care Time: 35 minutes ED Disposition Clinical Impression: Iliac vein thrombosis, right, History of uterine cancer, Intractable pain, Swelling of right lower extremity Hypertension Qualifiers: Hypertension type: essential hypertension Qualified Code(s): I10 - Essential (primary) hypertension Disposition: OP ADMIT IP TO THIS HOSP Is pt being admited?: Yes Condition: Serious Time of Disposition: 08:54
--- NOTE | 2020-08-18 06:45 | Vascular Lab Report ---
DUPLEX DOPPLER LOWER EXTREMITY VEINS, RIGHT INDICATION / CLINICAL INFORMATION: Pain and swelling. TECHNIQUE: Duplex doppler imaging was performed through the veins of the right lower extremity using venous comp ression and other maneuvers. COMPARISON: None available. FINDINGS: RIGHT COMMON FEMORAL VEIN: Negative. RIGHT FEMORAL VEIN: Negative. RIGHT POPLITEAL VEIN: Negative. RIGHT CALF VEINS: Negative. ADDITIONAL FINDINGS: None. IMPRESSION: 1. No sonographic evidence for DVT in the right lower extremity. Signer Name: Jarrett Cameron MD Signed: 08/18/2020 6:40 AM Workstation Name: [id number]
--- NOTE | 2020-08-18 07:00 | XRay Report ---
RIGHT FEMUR 2 VIEWS INDICATION / CLINICAL INFORMATION: right leg pain. COMPARISON: None available. FINDINGS: BONES/JOINT(S): No acute fracture or subluxation. Mild DJD in the right knee joint. SOFT TISSUES: No significant abnormality. ADDITIONAL FINDINGS: None. Signer Name: Jarrett Cameron MD Signed: 08/18/2020 6:56 AM Workstation Name: [id number]
--- NOTE | 2020-08-18 07:01 | XRay Report ---
RIGHT TIB-FIB 2 VIEWS INDICATION / CLINICAL INFORMATION: right leg pain. COMPARISON: None available. FINDINGS: BONES/JOINT(S): No acute fracture or subluxation. Mild DJD in the right knee. SOFT TISSUES: No significant abnormality. ADDITIONAL FINDINGS: None. Signer Name: Jarrett Cameron MD Signed: 08/18/2020 6:56 AM Workstation Name: [id number]
--- NOTE | 2020-08-18 07:59 | Cat Scan Report ---
CT PELVIS WITH CONTRAST HISTORY: Right lower extremity swelling and pain. History of uterine cancer. COMPARISON: CT abdomen pelvis with contrast 09/12/2019 TECHNIQUE: CT images of the pelvis were obtained following administration of intravenous contrast. Sa gittal and coronal reformatted images. All CT scans at this location are performed using CT dose redu ction for ALARA by means of automated exposure control. CONTRAST: 100 ml of intravenous contrast administered. FINDINGS: Subtle, partially occluding thrombus is identified in the distal right common iliac artery and proxim al right internal iliac artery. This is best demonstrated on helical images 54-60 series 2. The left iliac veins are patent and unremarkable. The arterial structures are widely patent with minimal calci fic plaques in the common iliac arteries. Hysterectomy changes are evident. There appears to be mild right hydronephrosis which is new since e previous exam. No obvious obstructing lesion in the distal right ureter is appreciated. The bladder , distal ureters and visualized bowel loops in the abdomen are unremarkable. Normal appendix. No evid ence for suspicious mass, pathologic adenopathy, fluid collection or inflammatory changes. The visualized bony structures are intact with mild degenerative changes in the lower lumbar spine. N o suspicious bony lesion. IMPRESSION: Partial thrombosis of the distal right common iliac vein and proximal right internal iliac vein. Mild right hydronephrosis has developed since 09/12/2019. Signer Name: Jonathan Barton Jr, MD Signed: 08/18/2020 7:54 AM Workstation Name: [id number]
[2020-08-18] MEDS ORDERED: HEPARIN 10,000 UNITS/10 ML VIAL IV ONE (08:49)
[2020-08-18] MEDS ORDERED: HEPARIN/ 0.45% NACL DRIP 25,000 UNIT/500 ML BAG IV SCH (09:00)
--- NOTE | 2020-08-18 10:05 | History and Physical Report ---
History of Present Illness Date of examination: 08/18/20 Date of admission: 08/18/20 08:54 Chief complaint: RLE pain History of present illness: This is a 64-year-old -Al[place]ian female who presents to the emergency department via EMS from home with complaint of right lower extremity pain and swelling. The pain is currently 10 out of 10 in intensity, but has been going on for the past month and getting progressively worse. The patient says that there has been a 1 day history of swelling to the right lower extremity including the knee and thigh. She has a history of uterine carcinosarcoma apparently was in remission. However the patient says that she saw her gynecology oncologist, Dr. Hennessy ([facility]), and recently had a CT scan done of what I am assuming is the pelvis and the patient says that she was told "they found something they want to biopsy." The patient has tried her oxycodone for her pain without any relief. She denies any fever, skin color change, rash, lesions. - Past Medical History Previous Medical History?: Yes Hx Hypertension: Yes Hx Liver Disease: Yes (hep C) Hx of Cancer: Yes (Uterine) Additional medical history: chronic pain - Surgical History Past Surgical History?: Yes Additional Surgical History: TUBAL LIGATION. hemorrhoidectomy. nasal reconstruction. hysterectomy 08/2019 - Social History Smoking Status: Never Smoker Substance Use Type: None - Medications Home Medications: Home Medications Medication Instructions Recorded Confirmed Last Taken Type HYDROcodone/APAP 5-325 [[place] 1 each PO Q6HR PRN #20 tablet 01/14/15 08/18/20 Unknown Rx 5/325] Ondansetron [Zofran Odt] 4 mg PO Q8HR PRN #15 tab.rapdis 11/02/19 08/18/20 Unknown Rx Amlodipine Besylate/Valsartan 150 mg PO DAILY 08/18/20 08/18/20 Unknown History Losartan/Hydrochlorothiazide 100 mg PO DAILY 08/18/20 08/18/20 Unknown History [Losartan-Hctz 100-25 mg Tab] Pregabalin [Lyrica] 75 mg PO DAILY 08/18/20 08/18/20 Unknown History atenoloL [Tenormin] 50 mg PO DAILY 08/18/20 08/18/20 Unknown History methOCARBAMOL [Robaxin TAB] 750 mg PO Q8H PRN 08/18/20 08/18/20 Unknown History Review of Systems ROS: Stated complaint: RIGHT LEG SWELLING Other details as noted in HPI Comment: All other systems reviewed and negative Constitutional: denies: chills, fever Eyes: denies: eye pain, vision change ENT: denies: ear pain, throat pain Respiratory: denies: cough, shortness of breath Cardiovascular: edema (right leg). denies: chest pain, palpitations Gastrointestinal: denies: abdominal pain, vomiting Genitourinary: denies: dysuria, discharge Musculoskeletal: joint swelling, arthralgia, myalgia. denies: back pain Skin: denies: rash, lesions Neurological: denies: numbness, paresthesias Medications and Allergies Allergies Allergy/AdvReac Type Severity Reaction Status Date / Time No Known Allergies Allergy Verified 05/07/20 07:21 Home Medications Medication Instructions Recorded Confirmed Last Taken Type HYDROcodone/APAP 5-325 [[place] 1 each PO Q6HR PRN #20 tablet 01/14/15 08/18/20 Unknown Rx 5/325] Ondansetron [Zofran Odt] 4 mg PO Q8HR PRN #15 tab.rapdis 11/02/19 08/18/20 Unknown Rx Amlodipine Besylate/Valsartan 150 mg PO DAILY 08/18/20 08/18/20 Unknown History Losartan/Hydrochlorothiazide 100 mg PO DAILY 08/18/20 08/18/20 Unknown History [Losartan-Hctz 100-25 mg Tab] Pregabalin [Lyrica] 75 mg PO DAILY 08/18/20 08/18/20 Unknown History atenoloL [Tenormin] 50 mg PO DAILY 08/18/20 08/18/20 Unknown History methOCARBAMOL [Robaxin TAB] 750 mg PO Q8H PRN 08/18/20 08/18/20 Unknown History Active Meds: Active Medications Heparin Sodium/Sodium Chloride (Heparin/ 0.45% Nacl-25,000 Unit/500 Ml) 25,000 unit in 500 mls @ 29 mls/hr IV TITR LYNN; Protocol Exam - Constitutional Vitals: Temp Pulse Resp BP Pulse Ox 97.6 F 82 20 166/72 100 08/18/20 03:24 08/18/20 08:39 08/18/20 08:39 08/18/20 08:39 08/18/20 08:39 General appearance: Present: no acute distress, well-nourished - EENT Eyes: Present: PERRL ENT: hearing intact, clear oral mucosa - Neck Neck: Present: supple, normal ROM - Respiratory Respiratory effort: normal Respiratory: bilateral: CTA - Cardiovascular Heart rate: 78 Rhythm: regular Heart Sounds: Present: S1 & S2. Absent: rub, click - Extremities Extremities: pulses symmetrical, No edema Peripheral Pulses: within normal limits - Abdominal General gastrointestinal: Present: soft, non-tender, non-distended, normal bowel sounds Female genitourinary: Present: normal - Rectal Rectal Exam: deferred - Integumentary Integumentary: Present: clear, warm, dry - Musculoskeletal Musculoskeletal: gait normal, strength equal bilaterally - Psychiatric Psychiatric: appropriate mood/affect, intact judgment & insight - Neurologic Neurologic: CNII-XII intact, moves all extremities Results - Labs CBC & Chem 7: 08/19/20 04:42 08/19/20 04:42 Labs: Laboratory Last Values WBC 5.6 K/mm3 (4.5-11.0) 08/18/20 04:40 RBC 3.95 M/mm3 (3.65-5.03) 08/18/20 04:40 Hgb 11.9 gm/dl (10.1-14.3) 08/18/20 04:40 Hct 36.6 % (30.3-42.9) 08/18/20 04:40 MCV 93 fl (79-97) 08/18/20 04:40 MCH 30 pg (28-32) 08/18/20 04:40 MCHC 33 % (30-34) 08/18/20 04:40 RDW 13.3 % (13.2-15.2) 08/18/20 04:40 Plt Count 252 K/mm3 (140-440) 08/18/20 04:40 Lymph % (Auto) 15.3 % (13.4-35.0) 08/18/20 04:40 [place] % (Auto) 12.5 % (0.0-7.3) H 08/18/20 04:40 Eos % (Auto) 1.2 % (0.0-4.3) 08/18/20 04:40 Baso % (Auto) 0.2 % (0.0-1.8) 08/18/20 04:40 Lymph # (Auto) 0.9 K/mm3 (1.2-5.4) L 08/18/20 04:40 [place] # (Auto) 0.7 K/mm3 (0.0-0.8) 08/18/20 04:40 Eos # (Auto) 0.1 K/mm3 (0.0-0.4) 08/18/20 04:40 Baso # (Auto) 0.0 K/mm3 (0.0-0.1) 08/18/20 04:40 Seg Neutrophils % 70.8 % (40.0-70.0) H 08/18/20 04:40 Seg Neutrophils # 4.0 K/mm3 (1.8-7.7) 08/18/20 04:40 PT 13.3 Sec. (12.2-14.9) 08/18/20 04:40 INR 1.00 (0.87-1.13) 08/18/20 04:40 APTT 33.5 Sec. (24.2-36.6) 08/18/20 04:40 Sodium 140 mmol/L (137-145) 08/18/20 04:40 Potassium 3.6 mmol/L (3.6-5.0) 08/18/20 04:40 Chloride 103.9 mmol/L (98-107) 08/18/20 04:40 Carbon Dioxide 25 mmol/L (22-30) 08/18/20 04:40 Anion Gap 15 mmol/L 08/18/20 04:40 BUN 8 mg/dL (7-17) 08/18/20 04:40 Creatinine 0.6 mg/dL (0.6-1.2) 08/18/20 04:40 Estimated GFR > 60 ml/min 08/18/20 04:40 BUN/Creatinine Ratio 13 % 08/18/20 04:40 Glucose 107 mg/dL (65-100) H 08/18/20 04:40 Calcium 9.4 mg/dL (8.4-10.2) 08/18/20 04:40 NT-Pro-B Natriuret Pep 53.70 pg/mL (0-900) 08/18/20 04:40 Short CBC 08/18/20 Range/Units 04:40 WBC 5.6 (4.5-11.0) K/mm3 Hgb 11.9 (10.1-14.3) gm/dl Hct 36.6 (30.3-42.9) % Plt Count 252 (140-440) K/mm3 [facility] 08/18/20 04:40 Sodium 140 Potassium 3.6 Chloride 103.9 Carbon Dioxide 25 BUN 8 Creatinine 0.6 Glucose 107 H Calcium 9.4 - Imaging and Cardiology Imaging and Cardiology: Duplex lower extremity vein and artery No sonographic evidence for DVT in the right lower extremity Femur x-ray No fracture Tibia fibula fracture x-ray No acute fracture Pelvic CT Partial thrombosis of the distal right common iliac vein and proximal right internal iliac vein Mild right hydronephrosis. Assessment and Plan Advance Directives: Yes (Full code) VTE prophylaxis?: Chemical Plan of care discussed with patient/family: Yes - Patient Problems (1) Hypertension Current Visit: Yes Status: Chronic Qualifiers: Hypertension type: essential hypertension Qualified Code(s): I10 - Essential (primary) hypertension Plan to address problem: Continue antihypertensives (2) Iliac vein thrombosis, right Current Visit: Yes Status: Acute Plan to address problem: Discussed with vascular surgery No need for IV heparin Eliquis initiated and patient to be discharged tomorrow on Eliquis (3) History of uterine cancer Current Visit: Yes Status: Chronic Plan to address problem: Patient to follow-up with her oncologist Patient to make appointment with her [facility]necology oncology at [facility] may assist in making the appointment Patient may be discharged tomorrow with adequate pain control (4) Hypokalemia Current Visit: Yes Status: Acute Plan to address problem: Mild Supplemented (5) DVT prophylaxis Current Visit: Yes Status: Acute Plan to address problem: Patient on Eliquis and GI prophylaxis
[2020-08-18] MEDS ORDERED: METOCLOPRAMIDE 10 MG TAB PO PRN (10:07)
[2020-08-18] MEDS ORDERED: ACETAMINOPHEN 500 MG TAB PO PRN (10:07)
[2020-08-18] MEDS ORDERED: traMADol 50 MG TAB PO PRN (10:07)
[2020-08-18] MEDS ORDERED: IBUPROFEN 600 MG TAB PO PRN (10:07)
[2020-08-18] MEDS ORDERED: CHLORTHALIDONE PO SCH (10:15)
[2020-08-18] MEDS ORDERED: ATENOLOL PO SCH (10:15)
--- NOTE | 2020-08-18 10:27 | Consultation ---
History of Present Illness - Reason for Consult Consult date: 08/18/20 RLE swelling with DVT Requesting physician: MADELINE HUANG - History of Present Illness 64-year-old -Y[place]i female who presents to the emergency department via EMS from home with complaint of right lower extremity pain and swelling. The pain is currently 10 out of 10 in intensity, but has been going on for the past month and getting progressively worse. The patient says that there has been a 1 month history of swelling to the right lower extremity including the knee and thigh. She has a history of uterine carcinosarcoma apparently was in remission. However the patient says that she saw her gynecology oncologist, Dr. Hennessy ([facility]), and recently had a CT scan done of what I am assuming is the pelvis and the patient says that she was told "they found something they want to biopsy." The patient has tried her oxycodone for her pain without any relief. She denies any fever, skin color change, rash, lesions. Vascular consulted for evaluation. CT scan reviewed demonstrating partial thrombus of the right distal common iliac vein, proximal right internal iliac vein, and mild right-sided hydronephrosis. 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 The patient reports to me that she has been having severe right-sided swelling and pain for the last month which has been causing worsening and worsening tightness and heaviness. She also has underlying back issues which is been treated with epidural steroid injections for bilateral lower extremity neuropathy. 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 I contacted [facility] and got in touch with Rupal, the nurse coordinator, and she reported that the patient will need to have a new appointment with a provider to formulate a plan given this probable metastatic lesion, which they are already aware of. The patient had COVID-19 which complicated her next appointment, but she is now greater than 30 days from her COVID-19 diagnosis and she is at least 1 week from a negative COVID-19 test. Patient has right thigh which is 4+ swelling with right calf which is 2+ swelling. She has palpable pedal pulses. - Past Medical History Previous Medical History?: Yes Hx Hypertension: Yes Hx Liver Disease: Yes (hep C) Hx of Cancer: Yes (Uterine carcinosarcoma) Additional medical history: chronic pain - Surgical History Past Surgical History?: Yes Additional Surgical History: TUBAL LIGATION. hemorrhoidectomy. nasal reconst ruction. hysterectomy 08/2019 - Social History Smoking Status: Never Smoker Substance Use Type: None Medications and Allergies Allergies Allergy/AdvReac Type Severity Reaction Status Date / Time No Known Allergies Allergy Verified 05/07/20 07:21 Home Medications Medication Instructions Recorded Confirmed Last Taken Type RX: Atenolol/Chlorthalidone 1 each PO DAILY 08/24/14 08/24/14 08/23/14 History [Tenoretic 50-25 mg] RX: traMADoL [Ultram 50 MG tab] 50 mg PO Q6HR PRN #14 tablet 08/24/14 Unknown Rx HYDROcodone/APAP 5-325 [[place] 1 each PO Q6HR PRN #20 tablet 01/14/15 Unknown Rx 5/325] Vicenta Root [Vicenta] 250 mg PO QID PRN #30 capsule 09/12/19 Unknown Rx Ibuprofen [Motrin] 600 mg PO Q8H PRN #30 tablet 09/12/19 Unknown Rx Metoclopramide [Reglan] 10 mg PO QID PRN #30 tablet 09/12/19 Unknown Rx RX: Acetaminophen [Non-Aspirin 500 mg PO Q6HR PRN #30 tablet 09/12/19 Unknown Rx Extra Strength] levoFLOXacin [Levaquin] 750 mg PO QDAY #6 tablet 09/12/19 Unknown Rx Ondansetron [Zofran Odt] 4 mg PO Q8HR PRN #15 tab.rapdis 11/02/19 Unknown Rx RX: traMADoL [Ultram 50 MG tab] 50 mg PO Q6HR PRN #12 tablet 05/07/20 Unknown Rx Active Meds: Active Medications Acetaminophen (Tylenol) 500 mg PO Q6HR PRN PRN Reason: Pain , Severe (7-10) Hydrocodone Bitart/Acetaminophen ([place] 5/325) 1 each PO Q6HR PRN PRN Reason: Pain , Severe (7-10) Atenolol (Tenormin) 50 mg PO QDAY LYNN Chlorthalidone (Thalitone) 25 mg PO QDAY LYNN Famotidine (Pepcid) 20 mg IV BID LYNN Hydromorphone HCl (Dilaudid) 0.5 mg IV Q3H PRN PRN Reason: Pain , Severe (7-10) Heparin Sodium/Sodium Chloride (Heparin/ 0.45% Nacl-25,000 Unit/500 Ml) 25,000 unit in 500 mls @ 29 mls/hr IV TITR LYNN; Protocol Sodium Chloride (Nacl 0.9% 1000 Ml) 1,000 mls @ 75 mls/hr IV DIRECT LYNN Ibuprofen (Ibuprofen) 600 mg PO Q8H PRN PRN Reason: Pain, Mild (1-3) Metoclopramide HCl (Reglan) 10 mg PO QID PRN PRN Reason: Nausea Ondansetron HCl (Zofran) 4 mg IV Q8H PRN PRN Reason: Nausea And Vomiting Oxycodone/Acetaminophen (Percocet 5/325) 1 tab PO Q6H PRN PRN Reason: Pain, Moderate (4-6) Sodium Chloride (Sodium Chloride Flush Syringe 10 Ml) 10 ml IV BID LYNN Sodium Chloride (Sodium Chloride Flush Syringe 10 Ml) 10 ml IV PRN PRN PRN Reason: LINE FLUSH Tramadol HCl (Ultram) 50 mg PO Q6HR PRN PRN Reason: Pain, Moderate (4-6) Review of Systems All systems: negative (see HPI) Exam - Constitutional Vitals: Temp Pulse Resp BP Pulse Ox 97.6 F 82 20 166/72 100 08/18/20 03:24 08/18/20 08:39 08/18/20 08:39 08/18/20 08:39 08/18/20 08:39 General appearance: Present: mild distress (Due to right leg pain) - EENT Eyes: Present: EOM intact ENT: hearing intact - Neck Neck: Present: supple - Respiratory Respiratory effort: normal - Extremities Extremities: no ischemia, pulses intact, abnormal (see HPI) Peripheral Pulses: within normal limits - Abdominal General gastrointestinal: Present: other (No costovertebral tenderness) - Psychiatric Psychiatric: appropriate mood/affect, agitated (Reasonably upset and tearful about underlying malignancy) - Neurologic Neurologic: moves all extremities Results - Labs CBC & Chem 7: 08/18/20 04:40 08/18/20 04:40 Labs: Abnormal lab results 08/18/20 08/18/20 Range/Units 04:40 04:40 [place] % (Auto) 12.5 H (0.0-7.3) % Lymph # (Auto) 0.9 L (1.2-5.4) K/mm3 Seg Neutrophils % 70.8 H (40.0-70.0) % Glucose 107 H (65-100) mg/dL Assessment and Plan 64-year-old female with history of uterine carcinosarcoma status post incomplete resection (80% resected, per patient) in 2019 who for the last month to 2 months has been having severe right lower extremity swelling and tightness and pain who presents to the hospital with the symptoms. CT scan demonstrates, upon my review, implant in the right pelvic sidewall exerting mass-effect and/or invading the right iliac veins and right ureter. Tumor thrombus is also a possibility. When I contacted [facility], they recommend she follow-up as soon as possible in order to formulate a new plan. These are more chronic issues and the CT findings have been already noted by [facility] which had her set up for biopsy. Since part of the options of care may involve resection, I do not recommend endo vascular therapy until a plan has been formalized. Recommend anticoagulation with Eliquis 10 mg p.o. twice daily x14 days and subsequently 5 mg p.o. twice daily afterwards. Eliquis is appropriate for use in malignancy per the recently published [place] trial in the [facility] (01/2020). Patient will need to have an appointment confirmed with either Dr. Wilson, Dr. Medel, or Dr. Cole at [facility] ([phone]) prior to discharge.
[2020-08-18] MEDS ORDERED: ACETAMINOPHEN 325 MG TAB PO PRN (10:30)
[2020-08-18] MEDS ORDERED: SODIUM CHLORIDE 0.9% 1000 ML 1,000 ML ONE (10:50)
[2020-08-18] MEDS ORDERED: oxyCODONE /ACETAMINOPHEN 5-325MG TAB ONE (10:52)
[2020-08-18] MEDS ORDERED: HYDROmorphone 1 MG/1 ML INJ ONE ×3 (10:52→20:24)
[2020-08-18] MEDS: HYDROmorphone 1 MG/1 ML INJ IV PRN ×5 (10:58→23:41)
[2020-08-18] MEDS: oxyCODONE /ACETAMINOPHEN 5-325MG TAB PO PRN (10:58)
[2020-08-18] MEDS ORDERED: ONDANSETRON 4 MG/2 ML INJ IV PRN (11:00)
[2020-08-18] MEDS ORDERED: SODIUM CHLORIDE 0.9% 1000 ML 1,000 ML IV SCH (11:00)
[2020-08-18] MEDS: atenoloL 50 MG TAB PO SCH (11:54)
[2020-08-18] MEDS: CHLORTHALIDONE 25 MG TAB PO SCH (11:54)
[2020-08-18] MEDS ORDERED: APIXABAN 5 MG TAB ONE (11:59)
[2020-08-18] MEDS: APIXABAN 5 MG TAB PO SCH ×2 (12:02→21:40)
[2020-08-18] MEDS: FAMOTIDINE 20 MG/2 ML INJ IV SCH (21:41)
[2020-08-19] MEDS: HYDROmorphone 1 MG/1 ML INJ IV PRN ×4 (03:13→16:41)
[2020-08-19 05:19] LABS: Hematocrit 34.7 % (30.3-42.9); Hemoglobin 11.3 gm/dl (10.1-14.3); Mean Corpuscular HGB Conc 33 % (30-34); Mean Corpuscular Volume 92 fl (79-97); Platelet Count 236 K/mm3 (140-440); Red Blood Count 3.75 M/mm3 (3.65-5.03); Red Cell Distribution Width 13.3 % (13.2-15.2)
[2020-08-19 05:36] LABS: Alanine Aminotransferase 30 units/L (7-56); Albumin 3.5 g/dL (3.9-5); Blood Urea Nitrogen 9 mg/dL (7-17); Calcium 8.6 mg/dL (8.4-10.2); Hemolysis Index 5
[2020-08-19 05:43] LABS: BUN/Creatinine Ratio 15
[2020-08-19 08:21] LABS: Basophils % (Manual) 0 % (0.0-1.8); Total Cells Counted 100
[2020-08-19 08:24] LABS: Anisocytosis Few
[2020-08-19 08:25] LABS: Platelet Estimate Consistent w Auto
[2020-08-19] MEDS: HYDROcodone/ACETAMINOPHEN 5-325 MG TAB PO PRN (10:02)
[2020-08-19] MEDS: APIXABAN 5 MG TAB PO SCH (10:03)
[2020-08-19] MEDS: CHLORTHALIDONE 25 MG TAB PO SCH (10:03)
[2020-08-19] MEDS: FAMOTIDINE 20 MG/2 ML INJ IV SCH ×2 (10:03→21:11)
[2020-08-19] MEDS: atenoloL 50 MG TAB PO SCH (10:06)
[2020-08-19] MEDS: HEPARIN/ 0.45% NACL DRIP 25,000 UNIT/500 ML BAG IV SCH (14:46)
--- NOTE | 2020-08-19 15:17 | Progress Note ---
Assessment and Plan Assessment and plan: 64-year-old -Welsh female with a medical history of uterine cancer who presents to the emergency department via EMS from home with complaint of right lower extremity pain and swelling. The pain is currently 10 out of 10 in intensity, but has been going on for the past month and getting progressively worse. The patient says that there has been a 1 day history of swelling to the right lower extremity including the knee and thigh. She has a history of uterine carcinosarcoma apparently was in remission. Patient was recently seen by her VALVE PIPE IRRIGATOR oncologist at [place] [Dr. Hennessy] and had a CT performed-patient was told that she needs to have a biopsy. Patient has not been able to have a biopsy as patient ended up with Covid and her appointment was canceled as per report. Patient has been at home and taking pain medications but pain continued to get worse. She decided to come in for further evaluation Here, patient had a CT abdomen and pelvis performed that showed thrombosis involving the iliac veins. Vascular surgery was consulted. Patient was started on IV anticoagulation. As per vascular, patient will need to have follow-up with SLASHER OPERATOR onc at [place]. Patient was switched to apixaban on 08/18. 08/19. Patient seen and examined at bedside this morning. Outlined plan with patient. She is not happy and wants to have further evaluation here. Patient would like to have symptom management here. I explained that her symptoms could be progression of underlying malignancy and will need to have evaluation by team at [facility]. Due to persistent pain, switch anticoagulation to IV heparin today. Continue pain medications for now. I will contact [place] and see if patient can be evaluated as a transfer. Problems 1) Hypertension Current Visit: Yes Status: Chronic Qualifiers: Hypertension type: essential hypertension Qualified Code(s): I10 - Essential (primary) hypertension Plan to address problem: Continue antihypertensives (2) Iliac vein thrombosis, right Current Visit: Yes Status: Acute Plan to address problem: CT abdomen pelvis reviewed-patient could be having compression from possible metastatic cancer with resultant hydronephrosis and venous compression. Venous flow shows thrombosis in the iliac vein. Patient still has persistent pain and swelling so will switch to IV heparin for now. Needs to be evaluated by VALVE PIPE IRRIGATOR oncology at [facility]. Will see if patient can be transferred. Placed a call too [facility] transfer center. Awaiting response. (3) History of uterine cancer Current Visit: Yes Status: Chronic Plan to address problem: Plan as above (4) Hypokalemia Current Visit: Yes Status: Acute Plan to address problem: Replete PRN (5) DVT prophylaxis Current Visit: Yes Status: Acute Plan to address problem: IV heparin History Interval history: Patient seen and examined at bedside this morning Patient still complains of right lower extremity pain and swelling Patient has been seen by surgeon who advises follow-up with VALVE PIPE IRRIGATOR oncology Patient is on anticoagulation and pain medications Hospitalist Physical - Physical exam Narrative exam: VITAL SIGNS: Reviewed. GENERAL: Awake and alert on response to questions HEAD: No signs of head trauma. EYES: Pupils are equal. Extraocular motions intact. EARS: Hearing grossly intact. MOUTH: Oropharynx is normal. NECK: No adenopathy, no JVD. CHEST: Chest with diminished breath sounds bilaterally. No wheezes, rales, or rhonchi. CARDIAC: Regular rate and rhythm. S1 and S2, without murmurs, gallops, or rubs. VASCULAR: No Edema. Peripheral pulses normal and equal in all extremities. ABDOMEN: Soft, non tender and non distended. No rebound or guarding, and no masses palpated. Bowel Sounds normal. MUSCULOSKELETAL: RLE -swelling and tenderness NEUROLOGIC EXAM: Alert and oriented x3. No focal neurologic deficits PSYCHIATRIC: Stable mood SKIN: No obvious lesions - Constitutional Vitals: Temp Pulse Resp BP Pulse Ox 98.2 F 78 21 148/78 98 08/18/20 22:59 08/19/20 10:06 08/19/20 10:00 08/19/20 10:06 08/19/20 10:00 Results - Labs CBC & Chem 7: 08/19/20 04:42 08/19/20 04:42 Labs: Laboratory Last Values WBC 4.9 K/mm3 (4.5-11.0) 08/19/20 04:42 RBC 3.75 M/mm3 (3.65-5.03) 08/19/20 04:42 Hgb 11.3 gm/dl (10.1-14.3) 08/19/20 04:42 Hct 34.7 % (30.3-42.9) 08/19/20 04:42 MCV 92 fl (79-97) 08/19/20 04:42 MCH 30 pg (28-32) 08/19/20 04:42 MCHC 33 % (30-34) 08/19/20 04:42 RDW 13.3 % (13.2-15.2) 08/19/20 04:42 Plt Count 236 K/mm3 (140-440) 08/19/20 04:42 Lymph % (Auto) 15.3 % (13.4-35.0) 08/18/20 04:40 [place] % (Auto) Visual Designer 08/19/20 04:42 Eos % (Auto) 1.2 % (0.0-4.3) 08/18/20 04:40 Baso % (Auto) 0.2 % (0.0-1.8) 08/18/20 04:40 Lymph # (Auto) 0.9 K/mm3 (1.2-5.4) L 08/18/20 04:40 [place] # (Auto) 0.7 K/mm3 (0.0-0.8) 08/18/20 04:40 Eos # (Auto) 0.1 K/mm3 (0.0-0.4) 08/18/20 04:40 Baso # (Auto) 0.0 K/mm3 (0.0-0.1) 08/18/20 04:40 Add Manual Diff Complete 08/19/20 04:42 Total Counted 100 08/19/20 04:42 Seg Neutrophils % 70.8 % (40.0-70.0) H 08/18/20 04:40 Seg Neuts % (Manual) 69.0 % (40.0-70.0) 08/19/20 04:42 Band Neutrophils % 0 % 08/19/20 04:42 Lymphocytes % (Manual) 13.0 % (13.4-35.0) L 08/19/20 04:42 Reactive Lymphs % (Man) 0 % 08/19/20 04:42 Monocytes % (Manual) 13.0 % (0.0-7.3) H 08/19/20 04:42 Eosinophils % (Manual) 1.0 % (0.0-4.3) 08/19/20 04:42 Basophils % (Manual) 0 % (0.0-1.8) 08/19/20 04:42 Metamyelocytes % 0 % 08/19/20 04:42 Myelocytes % 0 % 08/19/20 04:42 Promyelocytes % 0 % 08/19/20 04:42 Blast Cells % 4.0 % 08/19/20 04:42 Nucleated RBC % Not Reportable 08/19/20 04:42 Seg Neutrophils # 4.0 K/mm3 (1.8-7.7) 08/18/20 04:40 Seg Neutrophils # Man 3.4 K/mm3 (1.8-7.7) 08/19/20 04:42 Band Neutrophils # 0.0 K/mm3 08/19/20 04:42 Lymphocytes # (Manual) 0.6 K/mm3 (1.2-5.4) L 08/19/20 04:42 Abs React Lymphs (Man) 0.0 K/mm3 08/19/20 04:42 Monocytes # (Manual) 0.6 K/mm3 (0.0-0.8) 08/19/20 04:42 Eosinophils # (Manual) 0.0 K/mm3 (0.0-0.4) 08/19/20 04:42 Basophils # (Manual) 0.0 K/mm3 (0.0-0.1) 08/19/20 04:42 Metamyelocytes # 0.0 K/mm3 08/19/20 04:42 Myelocytes # 0.0 K/mm3 08/19/20 04:42 Promyelocytes # 0.0 K/mm3 08/19/20 04:42 Blast Cells # 0.6 K/mm3 08/19/20 04:42 WBC Morphology Not Reportable 08/19/20 04:42 Hypersegmented Neuts Not Reportable 08/19/20 04:42 Hyposegmented Neuts Not Reportable 08/19/20 04:42 Hypogranular Neuts Not Reportable 08/19/20 04:42 Smudge Cells Not Reportable 08/19/20 04:42 Toxic Granulation Not Reportable 08/19/20 04:42 Toxic Vacuolation Not Reportable 08/19/20 04:42 Dohle Bodies Not Reportable 08/19/20 04:42 Pelger-Huet Anomaly Not Reportable 08/19/20 04:42 Lorenzo Rods Not Reportable 08/19/20 04:42 Platelet Estimate Consistent w auto 08/19/20 04:42 Clumped Platelets Not Reportable 08/19/20 04:42 Plt Clumps, EDTA Not Reportable 08/19/20 04:42 Large Platelets Not Reportable 08/19/20 04:42 Giant Platelets Not Reportable 08/19/20 04:42 Platelet Satelliting Not Reportable 08/19/20 04:42 Plt Morphology Comment Not Reportable 08/19/20 04:42 RBC Morphology Not Reportable 08/19/20 04:42 Dimorphic RBCs Not Reportable 08/19/20 04:42 Polychromasia Not Reportable 08/19/20 04:42 Hypochromasia Not Reportable 08/19/20 04:42 Poikilocytosis Not Reportable 08/19/20 04:42 Anisocytosis Few 08/19/20 04:42 Microcytosis Not Reportable 08/19/20 04:42 Macrocytosis Not Reportable 08/19/20 04:42 Spherocytes Not Reportable 08/19/20 04:42 Pappenheimer Bodies Not Reportable 08/19/20 04:42 Sickle Cells Not Reportable 08/19/20 04:42 Target Cells Not Reportable 08/19/20 04:42 Tear Drop Cells Not Reportable 08/19/20 04:42 Ovalocytes Not Reportable 08/19/20 04:42 Helmet Cells Not Reportable 08/19/20 04:42 [place] Bodies Not Reportable 08/19/20 04:42 [place] Rings Not Reportable 08/19/20 04:42 Laure Cells Not Reportable 08/19/20 04:42 Bite Cells Not Reportable 08/19/20 04:42 Crenated Cell Not Reportable 08/19/20 04:42 Elliptocytes Not Reportable 08/19/20 04:42 Acanthocytes (Spur) Not Reportable 08/19/20 04:42 Rouleaux Not Reportable 08/19/20 04:42 Hemoglobin C Crystals Not Reportable 08/19/20 04:42 Schistocytes Not Reportable 08/19/20 04:42 Malaria parasites Not Reportable 08/19/20 04:42 Reed Bodies Not Reportable 08/19/20 04:42 Hem Pathologist Commnt No 08/19/20 04:42 PT 13.3 Sec. (12.2-14.9) 08/18/20 04:40 INR 1.00 (0.87-1.13) 08/18/20 04:40 APTT 33.5 Sec. (24.2-36.6) 08/18/20 04:40 Heparin Anti-Xa Level > 2.00 U.I./ml (0.3-0.7) H 08/18/20 16:58 Sodium 141 mmol/L (137-145) 08/19/20 04:42 Potassium 3.5 mmol/L (3.6-5.0) L 08/19/20 04:42 Chloride 104.9 mmol/L (98-107) 08/19/20 04:42 Carbon Dioxide 24 mmol/L (22-30) 08/19/20 04:42 Anion Gap 16 mmol/L 08/19/20 04:42 BUN 9 mg/dL (7-17) 08/19/20 04:42 Creatinine 0.6 mg/dL (0.6-1.2) 08/19/20 04:42 Estimated GFR > 60 ml/min 08/19/20 04:42 BUN/Creatinine Ratio 15 % 08/19/20 04:42 Glucose 101 mg/dL (65-100) H 08/19/20 04:42 Hemoglobin A1c 4.9 % (4-6) 08/18/20 04:44 Calcium 8.6 mg/dL (8.4-10.2) 08/19/20 04:42 Total Bilirubin 0.30 mg/dL (0.1-1.2) 08/19/20 04:42 AST 30 units/L (5-40) 08/19/20 04:42 ALT 30 units/L (7-56) 08/19/20 04:42 Alkaline Phosphatase 61 units/L (35-129) 08/19/20 04:42 NT-Pro-B Natriuret Pep 53.70 pg/mL (0-900) 08/18/20 04:40 Total Protein 6.6 g/dL (6.3-8.2) 08/19/20 04:42 Albumin 3.5 g/dL (3.9-5) L 08/19/20 04:42 Albumin/Globulin Ratio 1.1 % 08/19/20 04:42 Crenshaw/IV: Voiding Method External Female Catheter IV Catheter Type [Left INT / Saline Lock Antecubital] IV Catheter Type [Right Hand] INT / Saline Lock Active Medications - Current Medications Current Medications: Generic Name Dose Route Start Last Admin Trade Name Freq PRN Reason Stop Dose Admin Acetaminophen 500 mg 08/18/20 10:07 Tylenol PO Q6HR PRN Pain , Severe (7-10) Hydrocodone Bitart/Acetaminophen 1 each 08/18/20 12:00 08/19/20 10:02 [place] 5/325 PO 1 each Q6HR PRN Administration Pain , Severe (7-10) Atenolol 50 mg 08/18/20 11:00 08/19/20 10:06 Tenormin PO 50 mg QDAY LYNN Administration Chlorthalidone 25 mg 08/18/20 11:00 08/19/20 10:03 Thalitone PO 25 mg QDAY LYNN Administration Famotidine 20 mg 08/18/20 22:00 08/19/20 10:03 Pepcid IV 20 mg BID LYNN Administration Hydromorphone HCl 0.5 mg 08/18/20 11:00 08/19/20 13:36 Dilaudid IV 0.5 mg Q3H PRN Administration Pain , Severe (7-10) Heparin Sodium/Sodium Chloride 25,000 unit in 500 mls @ 29 mls/hr 08/19/20 15:00 08/19/20 14:46 Heparin/ 0.45% Nacl-25,000 Unit/500 Ml IV 1,450 units/hr TITR LYNN 29 mls/hr Administration Protocol 1,450 UNITS/HR Ibuprofen 600 mg 08/18/20 10:07 Ibuprofen PO Q8H PRN Pain, Mild (1-3) Metoclopramide HCl 10 mg 08/18/20 10:07 Reglan PO QID PRN Nausea Ondansetron HCl 4 mg 08/18/20 11:00 Zofran IV Q8H PRN Nausea And Vomiting Oxycodone/Acetaminophen 1 tab 08/18/20 11:00 08/18/20 10:58 Percocet 5/325 PO 1 tab Q6H PRN Administration Pain, Moderate (4-6) Potassium Chloride 40 meq 08/19/20 14:59 K-Dur PO 08/19/20 15:00 ONCE ONE Sodium Chloride 10 ml 08/18/20 22:00 08/19/20 10:07 Sodium Chloride Flush Syringe 10 Ml IV 10 ml BID LYNN Administration Sodium Chloride 10 ml 08/18/20 10:05 Sodium Chloride Flush Syringe 10 Ml IV PRN PRN LINE FLUSH Tramadol HCl 50 mg 08/18/20 10:07 Ultram PO Q6HR PRN Pain, Moderate (4-6)
[2020-08-19] MEDS ORDERED: POTASSIUM CHLORIDE ER 20 MEQ TAB PO SCH (15:30)
[2020-08-19 16:06] LABS: Hemoglobin 11.6 gm/dl (10.1-14.3)
[2020-08-19 16:14] LABS: INR 1.38 (0.87-1.13)
[2020-08-19 16:15] LABS: Partial Thromboplastin Time 39.3 Sec. (24.2-36.6)
[2020-08-19] MEDS: oxyCODONE /ACETAMINOPHEN 5-325MG TAB PO PRN (20:21)
[2020-08-20] MEDS: HYDROmorphone 1 MG/1 ML INJ IV PRN ×7 (03:19→23:56)
[2020-08-20] MEDS: CHLORTHALIDONE 25 MG TAB PO SCH (09:21)
[2020-08-20] MEDS: FAMOTIDINE 20 MG/2 ML INJ IV SCH ×2 (09:21→21:27)
[2020-08-20] MEDS: atenoloL 50 MG TAB PO SCH (09:22)
--- NOTE | 2020-08-20 11:27 | Progress Note ---
Assessment and Plan Assessment and plan: 64-year-old -Greenlandic female with a medical history of uterine cancer who presents to the emergency department via EMS from home with complaint of right lower extremity pain and swelling. The pain is currently 10 out of 10 in intensity, but has been going on for the past month and getting progressively worse. The patient says that there has been a 1 day history of swelling to the right lower extremity including the knee and thigh. She has a history of uterine carcinosarcoma apparently was in remission. Patient was recently seen by her BIOMEDICAL SPECIALIST oncologist at [place] [Dr. Hennessy] and had a CT performed-patient was told that she needs to have a biopsy. Patient has not been able to have a biopsy as patient ended up with Covid and her appointment was canceled as per report. Patient has been at home and taking pain medications but pain continued to get worse. She decided to come in for further evaluation Here, patient had a CT abdomen and pelvis performed that showed thrombosis involving the iliac veins. Vascular surgery was consulted. Patient was started on IV anticoagulation. As per vascular, patient will need to have follow-up with RFID SPECIALIST onc at [place]. Patient was switched to apixaban on 08/18. 08/19. Patient seen and examined at bedside this morning. Outlined plan with patient. She is not happy and wants to have further evaluation here. Patient would like to have symptom management here. I explained that her symptoms could be progression of underlying malignancy and will need to have evaluation by team at [place]. Due to persistent pain, switch anticoagulation to IV heparin today. Continue pain medications for now. I will contact [place] and see if patient can be evaluated as a transfer. 08/20. Feels better today. Discussed with Dr. Cole ([place] BIOMEDICAL SPECIALIST onc), clinical call patient today to schedule an appointment. Discussed with patient's daughter [on the phone] and patient at bedside. Called by lab as patient has COVID-19. Patient previously diagnosed with Covid about 3 weeks ago. Continue to monitor symptoms for now. Place on isolation. Patient is currently asymptomatic. Problems 1) Hypertension Current Visit: Yes Status: Chronic Qualifiers: Hypertension type: essential hypertension Qualified Code(s): I10 - Essential (primary) hypertension Plan to address problem: Continue antihypertensives (2) Iliac vein thrombosis, right Current Visit: Yes Status: Acute Plan to address problem: CT abdomen pelvis reviewed-patient could be having compression from possible metastatic cancer with resultant hydronephrosis and venous compression. Venous flow shows thrombosis in the iliac vein. Now on heparin drip. Feels better today Plan to switch to DOAC at discharge Patient will need to follow-up with [place] BIOMEDICAL SPECIALIST oncology for evaluation of right lower extremity swelling. Continue pain medications (3) History of uterine cancer Current Visit: Yes Status: Chronic Plan to address problem: Plan as above (4) Hypokalemia Current Visit: Yes Status: Acute Plan to address problem: Replete PRN (5) DVT prophylaxis Current Visit: Yes Status: Acute Plan to address problem: IV heparin History Interval history: Patient seen and examined at bedside this morning She has some improvement after she was started on IV heparin. Case was discussed with Dr. Cole at [place]. Patient will be called this Am to have appointment scheduled. Hospitalist Physical - Physical exam Narrative exam: VITAL SIGNS: Reviewed. GENERAL: Awake and alert on response to questions HEAD: No signs of head trauma. EYES: Pupils are equal. Extraocular motions intact. EARS: Hearing grossly intact. MOUTH: Oropharynx is normal. NECK: No adenopathy, no JVD. CHEST: Chest with diminished breath sounds bilaterally. No wheezes, rales, or rhonchi. CARDIAC: Regular rate and rhythm. S1 and S2, without murmurs, gallops, or rubs. VASCULAR: No Edema. Peripheral pulses normal and equal in all extremities. ABDOMEN: Soft, non tender and non distended. No rebound or guarding, and no masses palpated. Bowel Sounds normal. MUSCULOSKELETAL: RLE -swelling and tenderness NEUROLOGIC EXAM: Alert and oriented x3. No focal neurologic deficits PSYCHIATRIC: Stable mood SKIN: No obvious lesions - Constitutional Vitals: Temp Pulse Resp BP Pulse Ox 98.5 F 72 15 140/65 99 08/20/20 09:05 08/20/20 09:22 08/20/20 09:55 08/20/20 09:22 08/20/20 09:05 Results - Labs CBC & Chem 7: 08/20/20 04:42 08/19/20 04:42 Labs: Laboratory Last Values WBC 4.9 K/mm3 (4.5-11.0) 08/19/20 04:42 RBC 3.75 M/mm3 (3.65-5.03) 08/19/20 04:42 Hgb 11.0 gm/dl (10.1-14.3) 08/20/20 04:42 Hct 33.0 % (30.3-42.9) 08/20/20 04:42 MCV 92 fl (79-97) 08/19/20 04:42 MCH 30 pg (28-32) 08/19/20 04:42 MCHC 33 % (30-34) 08/19/20 04:42 RDW 13.3 % (13.2-15.2) 08/19/20 04:42 Plt Count 216 K/mm3 (140-440) 08/20/20 04:42 Lymph % (Auto) 15.3 % (13.4-35.0) 08/18/20 04:40 [place] % (Auto) Classroom Instructional Aide 08/19/20 04:42 Eos % (Auto) 1.2 % (0.0-4.3) 08/18/20 04:40 Baso % (Auto) 0.2 % (0.0-1.8) 08/18/20 04:40 Lymph # (Auto) 0.9 K/mm3 (1.2-5.4) L 08/18/20 04:40 [place] # (Auto) 0.7 K/mm3 (0.0-0.8) 08/18/20 04:40 Eos # (Auto) 0.1 K/mm3 (0.0-0.4) 08/18/20 04:40 Baso # (Auto) 0.0 K/mm3 (0.0-0.1) 08/18/20 04:40 Add Manual Diff Complete 08/19/20 04:42 Total Counted 100 08/19/20 04:42 Seg Neutrophils % 70.8 % (40.0-70.0) H 08/18/20 04:40 Seg Neuts % (Manual) 69.0 % (40.0-70.0) 08/19/20 04:42 Band Neutrophils % 0 % 08/19/20 04:42 Lymphocytes % (Manual) 13.0 % (13.4-35.0) L 08/19/20 04:42 Reactive Lymphs % (Man) 0 % 08/19/20 04:42 Monocytes % (Manual) 13.0 % (0.0-7.3) H 08/19/20 04:42 Eosinophils % (Manual) 1.0 % (0.0-4.3) 08/19/20 04:42 Basophils % (Manual) 0 % (0.0-1.8) 08/19/20 04:42 Metamyelocytes % 0 % 08/19/20 04:42 Myelocytes % 0 % 08/19/20 04:42 Promyelocytes % 0 % 08/19/20 04:42 Blast Cells % 4.0 % 08/19/20 04:42 Nucleated RBC % Not Reportable 08/19/20 04:42 Seg Neutrophils # 4.0 K/mm3 (1.8-7.7) 08/18/20 04:40 Seg Neutrophils # Man 3.4 K/mm3 (1.8-7.7) 08/19/20 04:42 Band Neutrophils # 0.0 K/mm3 08/19/20 04:42 Lymphocytes # (Manual) 0.6 K/mm3 (1.2-5.4) L 08/19/20 04:42 Abs React Lymphs (Man) 0.0 K/mm3 08/19/20 04:42 Monocytes # (Manual) 0.6 K/mm3 (0.0-0.8) 08/19/20 04:42 Eosinophils # (Manual) 0.0 K/mm3 (0.0-0.4) 08/19/20 04:42 Basophils # (Manual) 0.0 K/mm3 (0.0-0.1) 08/19/20 04:42 Metamyelocytes # 0.0 K/mm3 08/19/20 04:42 Myelocytes # 0.0 K/mm3 08/19/20 04:42 Promyelocytes # 0.0 K/mm3 08/19/20 04:42 Blast Cells # 0.6 K/mm3 08/19/20 04:42 WBC Morphology Not Reportable 08/19/20 04:42 Hypersegmented Neuts Not Reportable 08/19/20 04:42 Hyposegmented Neuts Not Reportable 08/19/20 04:42 Hypogranular Neuts Not Reportable 08/19/20 04:42 Smudge Cells Not Reportable 08/19/20 04:42 Toxic Granulation Not Reportable 08/19/20 04:42 Toxic Vacuolation Not Reportable 08/19/20 04:42 Dohle Bodies Not Reportable 08/19/20 04:42 Pelger-Huet Anomaly Not Reportable 08/19/20 04:42 Lorenzo Rods Not Reportable 08/19/20 04:42 Platelet Estimate Consistent w auto 08/19/20 04:42 Clumped Platelets Not Reportable 08/19/20 04:42 Plt Clumps, EDTA Not Reportable 08/19/20 04:42 Large Platelets Not Reportable 08/19/20 04:42 Giant Platelets Not Reportable 08/19/20 04:42 Platelet Satelliting Not Reportable 08/19/20 04:42 Plt Morphology Comment Not Reportable 08/19/20 04:42 RBC Morphology Not Reportable 08/19/20 04:42 Dimorphic RBCs Not Reportable 08/19/20 04:42 Polychromasia Not Reportable 08/19/20 04:42 Hypochromasia Not Reportable 08/19/20 04:42 Poikilocytosis Not Reportable 08/19/20 04:42 Anisocytosis Few 08/19/20 04:42 Microcytosis Not Reportable 08/19/20 04:42 Macrocytosis Not Reportable 08/19/20 04:42 Spherocytes Not Reportable 08/19/20 04:42 Pappenheimer Bodies Not Reportable 08/19/20 04:42 Sickle Cells Not Reportable 08/19/20 04:42 Target Cells Not Reportable 08/19/20 04:42 Tear Drop Cells Not Reportable 08/19/20 04:42 Ovalocytes Not Reportable 08/19/20 04:42 Helmet Cells Not Reportable 08/19/20 04:42 Alonso-[place] Bodies Not Reportable 08/19/20 04:42 [place] Rings Not Reportable 08/19/20 04:42 [place] Cells Not Reportable 08/19/20 04:42 Bite Cells Not Reportable 08/19/20 04:42 Crenated Cell Not Reportable 08/19/20 04:42 Elliptocytes Not Reportable 08/19/20 04:42 Acanthocytes (Spur) Not Reportable 08/19/20 04:42 Rouleaux Not Reportable 08/19/20 04:42 Hemoglobin C Crystals Not Reportable 08/19/20 04:42 Schistocytes Not Reportable 08/19/20 04:42 Malaria parasites Not Reportable 08/19/20 04:42 Reed Bodies Not Reportable 08/19/20 04:42 Hem Pathologist Commnt No 08/19/20 04:42 PT 17.1 Sec. (12.2-14.9) H 08/19/20 15:27 INR 1.38 (0.87-1.13) H 08/19/20 15:27 APTT 39.3 Sec. (24.2-36.6) H 08/19/20 15:27 Heparin Anti-Xa Level 2.00 U.I./ml (0.3-0.7) H 08/20/20 04:42 Sodium 141 mmol/L (137-145) 08/19/20 04:42 Potassium 3.5 mmol/L (3.6-5.0) L 08/19/20 04:42 Chloride 104.9 mmol/L (98-107) 08/19/20 04:42 Carbon Dioxide 24 mmol/L (22-30) 08/19/20 04:42 Anion Gap 16 mmol/L 08/19/20 04:42 BUN 9 mg/dL (7-17) 08/19/20 04:42 Creatinine 0.6 mg/dL (0.6-1.2) 08/19/20 04:42 Estimated GFR > 60 ml/min 08/19/20 04:42 BUN/Creatinine Ratio 15 % 08/19/20 04:42 Glucose 101 mg/dL (65-100) H 08/19/20 04:42 Hemoglobin A1c 4.9 % (4-6) 08/18/20 04:44 Calcium 8.6 mg/dL (8.4-10.2) 08/19/20 04:42 Total Bilirubin 0.30 mg/dL (0.1-1.2) 08/19/20 04:42 AST 30 units/L (5-40) 08/19/20 04:42 ALT 30 units/L (7-56) 08/19/20 04:42 Alkaline Phosphatase 61 units/L (35-129) 08/19/20 04:42 NT-Pro-B Natriuret Pep 53.70 pg/mL (0-900) 08/18/20 04:40 Total Protein 6.6 g/dL (6.3-8.2) 08/19/20 04:42 Albumin 3.5 g/dL (3.9-5) L 08/19/20 04:42 Albumin/Globulin Ratio 1.1 % 08/19/20 04:42 Crenshaw/IV: Voiding Method External Female Catheter IV Catheter Type [Left INT / Saline Lock Antecubital] IV Catheter Type [Right Hand] INT / Saline Lock Active Medications - Current Medications Current Medications: Generic Name Dose Route Start Last Admin Trade Name Freq PRN Reason Stop Dose Admin Acetaminophen 500 mg 08/18/20 10:07 Tylenol PO Q6HR PRN Pain , Severe (7-10) Hydrocodone Bitart/Acetaminophen 1 each 08/18/20 12:00 08/19/20 10:02 [place] 5/325 PO 1 each Q6HR PRN Administration Pain , Severe (7-10) Atenolol 50 mg 08/18/20 11:00 08/20/20 09:22 Tenormin PO 50 mg QDAY LYNN Administration Chlorthalidone 25 mg 08/18/20 11:00 08/20/20 09:21 Thalitone PO 25 mg QDAY LYNN Administration Famotidine 20 mg 08/18/20 22:00 08/20/20 09:21 Pepcid IV 20 mg BID LYNN Administration Hydromorphone HCl 0.5 mg 08/18/20 11:00 08/20/20 09:25 Dilaudid IV 0.5 mg Q3H PRN Administration Pain , Severe (7-10) Heparin Sodium/Sodium Chloride 25,000 unit in 500 mls @ 29 mls/hr 08/19/20 15:00 08/20/20 08:40 Heparin/ 0.45% Nacl-25,000 Unit/500 Ml IV 1,050 units/hr TITR LYNN 21 mls/hr Titration Protocol 1,450 UNITS/HR Ibuprofen 600 mg 08/18/20 10:07 Ibuprofen PO Q8H PRN Pain, Mild (1-3) Metoclopramide HCl 10 mg 08/18/20 10:07 Reglan PO QID PRN Nausea Ondansetron HCl 4 mg 08/18/20 11:00 Zofran IV Q8H PRN Nausea And Vomiting Oxycodone/Acetaminophen 1 tab 08/18/20 11:00 08/19/20 20:21 Percocet 5/325 PO 1 tab Q6H PRN Administration Pain, Moderate (4-6) Sodium Chloride 10 ml 08/18/20 22:00 08/20/20 09:22 Sodium Chloride Flush Syringe 10 Ml IV 10 ml BID LYNN Administration Sodium Chloride 10 ml 08/18/20 10:05 Sodium Chloride Flush Syringe 10 Ml IV PRN PRN LINE FLUSH Tramadol HCl 50 mg 08/18/20 10:07 Ultram PO Q6HR PRN Pain, Moderate (4-6)
[2020-08-20] MEDS: HEPARIN/ 0.45% NACL DRIP 25,000 UNIT/500 ML BAG IV SCH (17:24)
[2020-08-20] MEDS: HYDROcodone/ACETAMINOPHEN 5-325 MG TAB PO PRN (17:46)
[2020-08-20] MEDS ORDERED: GABAPENTIN 100 MG CAP PO SCH (18:00)
[2020-08-20] MEDS: oxyCODONE /ACETAMINOPHEN 5-325MG TAB PO PRN (20:00)
[2020-08-21] MEDS: oxyCODONE /ACETAMINOPHEN 5-325MG TAB PO PRN ×2 (05:36→11:54)
[2020-08-21 06:56] LABS: Hemoglobin 11.7 gm/dl (10.1-14.3)
[2020-08-21] MEDS: FAMOTIDINE 20 MG/2 ML INJ IV SCH (09:45)
[2020-08-21] MEDS: atenoloL 50 MG TAB PO SCH (09:45)
[2020-08-21] MEDS: HYDROmorphone 1 MG/1 ML INJ IV PRN (09:46)
[2020-08-21 13:27] VITALS: BP 176/90
--- NOTE | 2020-08-21 14:08 | Discharge Summary ---
Providers - Providers Date of Admission: 08/18/20 08:54 Date of discharge: 08/21/20 Attending physician: MELANIE CORDERO 08/18/20 08:51 Consult to Physician [CONS] Routine Comment: Consulting Provider: MARIA LUISA BROWN Physician Instructions: Reason For Exam: common and internal iliac vein thrombosis 08/18/20 11:33 Consult to Case Management [CONS] Routine Services Needed at Discharge: Other Notified:: immigration case worker Comment:: NEED APPT CONFIRMED WITH [phone] prior to dc at [facility] Additional Physician Instructions: Patient will need appt with Dr. Wilson, Dr. Medel, or Dr. Cole prior to discharge. Patient will need to be on Eliquis and have ability to obtain eliquis prior to discharge. 08/20/20 11:04 Physical Therapy Evaluation and Treat [CONS] Urgent Comment: Reason For Exam: Ambulation - Needs a walker Primary care physician: [facility]PA[facility] Hospitalization Condition: Serious Hospital course: 64-year-old -[place] female with a medical history of uterine cancer who presents to the emergency department via EMS from home with complaint of right lower extremity pain and swelling. The pain is currently 10 out of 10 in intensity, but has been going on for the past month and getting progressively worse. The patient says that there has been a 1 day history of swelling to the right lower extremity including the knee and thigh. She has a history of uterine carcinosarcoma apparently was in remission. Patient was recently seen by her [facility] oncologist at [facility] [Dr. Hennessy] and had a CT performed-patient was told that she needs to have a biopsy. Patient has not been able to have a biopsy as patient ended up with Covid and her appointment was canceled as per report. Patient has been at home and taking pain medications but pain continued to get worse. She decided to come in for further evaluation Here, patient had a CT abdomen and pelvis performed that showed thrombosis involving the iliac veins. Vascular surgery was consulted. Patient was started on IV anticoagulation. As per vascular, patient will need to have follow-up with [facility] [employer] [facility] onc at [facility]. Patient was switched to apixaban on 08/18. 08/19. Patient seen and examined at bedside this morning. Outlined plan with patient. She is not happy and wants to have further evaluation here. Patient would like to have symptom management here. I explained that her symptoms could be progression of underlying malignancy and will need to have evaluation by team at [facility]. Due to persistent pain, switch anticoagulation to IV heparin today. Continue pain medications for now. I will contact [facility] and see if patient can be evaluated as a transfer. 08/20. Feels better today. Discussed with Dr. Cole ([facility] onc), clinical will call patient today to schedule an appointment. Discussed with patient's daughter [on the phone] and patient at bedside. Called by lab as patient has COVID-19. Patient previously diagnosed with Covid about 3 weeks ago. Continue to monitor symptoms for now. Place on isolation. Patient is currently asymptomatic. 08/21.I called [facility] and spoke with Dr Cole's fellow. Patient had been scheduled to see them in the office next week Tuesday but as patient tested positive for COVID-19 yesterday, she will need to self isolate for 14 days. She will call [facility] and schedule an appointment on the number I have provided her. I discussed with patient and daughter Ms Galindo on the phone today. Informed her about the plan to follow up with [facility]. She has been seen by physical therapy and she will continue to use her walker at home. Her heparin will be discontinued and she will be switched to Eliquis 10 mg twice daily for 14 days and then 5 mg twice a day. She is currently stable to be discharged today Disposition: DC-01 TO HOME OR SELFCARE Core Measure Documentation - Palliative Care Palliative Care/ Comfort Measures: Not Applicable - Core Measures Any of the following diagnoses?: none Exam - Physical Exam Narrative exam: VITAL SIGNS: Reviewed. GENERAL: Awake and alert on response to questions HEAD: No signs of head trauma. EYES: Pupils are equal. Extraocular motions intact. EARS: Hearing grossly intact. MOUTH: Oropharynx is normal. NECK: No adenopathy, no JVD. CHEST: Chest with diminished breath sounds bilaterally. No wheezes, rales, or rhonchi. CARDIAC: Regular rate and rhythm. S1 and S2, without murmurs, gallops, or rubs. VASCULAR: No Edema. Peripheral pulses normal and equal in all extremities. ABDOMEN: Soft, non tender and non distended. No rebound or guarding, and no masses palpated. Bowel Sounds normal. MUSCULOSKELETAL: RLE -swelling and tenderness NEUROLOGIC EXAM: Alert and oriented x3. No focal neurologic deficits PSYCHIATRIC: Stable mood SKIN: No obvious lesions - Constitutional Vitals: Temp Pulse Resp BP Pulse Ox 98.2 F 68 20 176/90 98 08/21/20 13:23 08/21/20 13:23 08/21/20 04:55 08/21/20 13:23 08/21/20 13:23 Plan Weight Bearing Status: Weight Bear as Tolerated Durable Medical Equipment Needed Upon Discharge: Walker-Standard Additional Instructions: Continue Eliquis 10 mg twice a day for 14 days and then switch to 5 mg twice a day. Follow-up with [facility] oncology at [facility]. Call the office - number- [phone] to schedule an appointment. Self isolate/quaratine for 14 days prior to appointment at [facility] Follow up with: PRIMARY CARE, [Primary Care Provider] - 3-5 Days Forms: Work/School Release Form Prescriptions: Apixaban [Eliquis starter pack] 5 mg PO BID #100 tab.ds.pk HYDROcodone/APAP 5-325 [[place] 5-325 mg TAB] 1 each PO Q8HR PRN #12 tablet PRN Reason: Pain
[2020-08-21] MEDS ORDERED: GABAPENTIN 300 MG CAP PO SCH (18:00)
== END 2020-08-21 16:20 | disposition home or self-care (01) ==
LOC: ED 23:54 → 4A 08-18 08:54 → 3A 08-20 19:16 → UNDODISOB 08-21 16:20
PROVIDERS: ADMIT Internal Medicine; ATTEND Internal Medicine
DX: U07.1 COVID-19 (principal); I82.421 Acute embolism and thrombosis of right iliac vein; I10 Essential (primary) hypertension; E87.6 Hypokalemia; M79.89 Other specified soft tissue disorders; Z85.42 Personal history of malignant neoplasm of other parts of uterus; Z86.19 Personal history of other infectious and parasitic diseases; Z98.51 Tubal ligation status; K76.9 Liver disease, unspecified; Z90.710 Acquired absence of both cervix and uterus; Z98.890 Other specified postprocedural states; Z79.899 Other long term (current) drug therapy
CPT/HCPCS: 36415; 72193; 73552; 73590; 80048; 80053; 83036; 83880; 85007; 85014; 85018; 85025; 85049; 85520; 85610; 85730; 93971; 96361; 96365; 96375; 96376; 99291; G0378; J1170; J1644; J2405; J7030; Q9967; U0003